=== PATIENT | male | born 1945 | race Caucasian/White ===

== ENCOUNTER 2022-08-01 19:23 | Emergency (ER) | payer MEDICARE ==
[2022-08-01 19:31] VITALS: TEMP 97.9
--- NOTE | 2022-08-01 19:59 | ED ---
Fall HPI - General Chief Complaint: Fall Stated Complaint: recheck Time Seen by Provider: 08/01/22 19:40 Source: patient, RN notes reviewed, old records reviewed Mode of arrival: ambulatory - History of Present Illness Initial Comments: This is a 77-year-old male to the ER for evaluation patient presents today for evaluation of back pain back pain is thoracic in nature as well as around his hips and lower back. This was a fall 3 days ago. Patient is recent heart transplant patient from fall was from standing on his porch while he was trying to avoid be. Patient did have x-ray today which showed some abnormality of thoracic spine and he was sent to ER for evaluation and imaging. 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 fevers no cough no congestion no chest pain or other complaint MD Complaint: fall (3 days ago) -: days(s) (3) Fall From: standing When Fall Occurred: # days [employer]ER (3) Fall Witnessed: no Place Fall Occurred: home Loss of Consciousness: none Prolonged Down Time?: no Location: back Severity: moderate Severity scale (1-10): 6 Context: tripped/slipped Associated Symptoms: denies - Related Data Home Medications Medication Instructions Recorded Confirmed Aspirin 81 mg PO DAILY 02/23/14 06/09/22 Levothyroxine Sodium [Synthroid] 25 mcg PO DAILY 02/23/14 06/09/22 Omeprazole [PriLOSEC] 20 mg PO DAILY 02/23/14 06/09/22 Albuterol Inhaler [Ventolin Hfa 2 puff INHALATION RT-Q6H PRN 06/09/22 06/09/22 Inhaler] Atorvastatin [Lipitor] 40 mg PO HS 06/09/22 06/09/22 Cholecalciferol [Vitamin D3 (25 25 mcg PO DAILY 06/09/22 06/09/22 Mcg = 1000 Iu)] Clopidogrel [Plavix] 75 mg PO DAILY 06/09/22 06/09/22 Furosemide [Lasix] 20 mg PO DAILY 06/09/22 06/09/22 Gabapentin 300 mg PO HS 06/09/22 06/09/22 amLODIPine [Norvasc] 10 mg PO DAILY 06/09/22 06/09/22 sitaGLIPtin [Januvia] 100 mg PO DAILY 06/09/22 06/09/22 Previous Rx's Medication Instructions Recorded Metoprolol Succinate (ER) [Toprol 50 mg PO DAILY #30 tab 06/11/22 XL] Allergies Allergy/AdvReac Type Severity Reaction Status Date / Time cephalexin monohydrate Allergy Rash/Hives Verified 08/01/22 19:31 [From Keflex] hydrocodone bitartrate Allergy Hallucinati Verified 08/01/22 19:31 [From Lortab] ons mushrooms Allergy Rash/Hives Uncoded 08/01/22 19:31 Review of Systems ROS Statement: Those systems with pertinent positive or pertinent negative responses have been documented in the HPI. ROS Other: All systems not noted in ROS Statement are negative. Past Medical History Past Medical History: GERD/Reflux, Hyperlipidemia, Hypertension, Thyroid Disorder History of Any Multi-Drug Resistant Organisms: None Reported Past Surgical History: Coronary Bypass/CABG, Joint Replacement, Orthopedic Surgery, Pacemaker Additional Past Surgical History / Comment(s): right foot surgery, left knee surgery, right shoulder surgery, keesha cataracts Past Psychological History: No Psychological Hx Reported Smoking Status: Former smoker Past Alcohol Use History: None Reported Past Drug Use History: None Reported General Exam Limitations: no limitations General appearance: alert, in no apparent distress Head exam: Present: atraumatic, normocephalic, normal inspection Eye exam: Present: normal appearance, PERRL, EOMI. Absent: scleral icterus, conjunctival injection, periorbital swelling ENT exam: Present: normal exam, mucous membranes moist Neck exam: Present: normal inspection. Absent: tenderness, meningismus, lymphadenopathy Respiratory exam: Present: normal lung sounds bilaterally. Absent: respiratory distress, wheezes, rales, rhonchi, stridor Cardiovascular Exam: Present: regular rate, normal rhythm, normal heart sounds. Absent: systolic murmur, diastolic murmur, rubs, gallop, clicks GI/Abdominal exam: Present: soft, normal bowel sounds. Absent: distended, tenderness, guarding, rebound, rigid Extremities exam: Present: normal inspection, full ROM, normal capillary refill. Absent: tenderness, pedal edema, joint swelling, calf tenderness Back exam: Present: normal inspection, tenderness (lumbar spine), paraspinal tenderness, other (no spinal tenderness of thoracic spine). Absent: muscle spasm, vertebral tenderness Neurological exam: Present: alert, oriented X3, CN II-XII intact Psychiatric exam: Present: normal affect, normal mood Skin exam: Present: warm, dry, intact, normal color. Absent: rash Course Vital Signs 08/01/22 08/01/22 19:25 23:22 Temperature 97.9 F Pulse Rate 75 68 Respiratory 20 18 Rate Blood Pressure 143/56 162/84 O2 Sat by Pulse 95 95 Oximetry - Reevaluation(s) Reevaluation #1: 08/01/22 22:15 medical record is reviewed Reevaluation #2: 08/01/22 22:15 Patient's pain is improved She continues to have improvement of pain here in the ER Reevaluation #3: 08/01/22 22:15 patient informed results and questions answered Patient understands nonspecific findings on thoracic spine CT and unlikely cor relation to 5 days on an outpatient x-ray being results of trauma. We will do CRP is a to suggest abscess as possible foreign computed tomography scan his CRP is negative he is afebrile, does not do IV drugs we will also obtain blood cultures. Patient informed of negative CRP and we will obtain culture of blood tests here in the emergency department scan will follow-up with primary care for recurrent evaluation of possible CT or MRI. Monitoring of symptoms and pain control. At this point it is unlikely patient does have thoracic spine abscess and findings on x-ray believe are unlikely due to trauma Patient's main complaint continues to be back pain back pain and lower in his lumbar spine and pelvis, patient does not have tenderness over her thoracic spine Reevaluation #4: 08/01/22 22:15 Was pt. sent in by a medical professional or institution? @ -yes outpatient Imaging Did you speak to anyone other than the patient for history? @ -no Did you review nursing and triage notes? @ -agree Were old charts reviewed? @ -no Differential Diagnosis? @ -no EKG interpreted by me (3pts min.)? @ -no X-rays interpreted by me (1pt min.)? @ -no CT interpreted by me (1pt min.)? @ -no U/S interpreted by me (1pt. min.)? @ -no What testing was considered but not performed? (CT, X-rays, U/S, labs)? Why? @ no What meds were considered but not given? Why? @ -no Did you discuss the management of the patient with other professionals? @ -no Did you reconcile home meds? @ -no Was smoking cessation discussed for >3mins.? @ -no Was critical care preformed (if so, how long)? @ -no Were there social determinants of health that impacted care today? How? (Homelessness, low income, unemployed, alcoholism, drug addiction, transportation, low edu. Level, literacy, decrease access to med. care, detention, rehab)? @ -no Was there de-escalation of care discussed even if they declined? (Discuss DNR or withdrawal of care, Hospice)? @ -no What co-morbidities impacted this encounter? (DM, HTN, Smoking, COPD, CAD, Cancer, CVA, Hep., AIDS, mental health diagnosis, sleep apnea, morbid obesity)? @ -no Was patient admitted / discharged? @ -dc Undiagnosed new problem with uncertain prognosis? @ -no Drug Therapy requiring intensive monitoring for toxicity (Heparin, Nitro, Insulin, Cardizem)? @ -no Were any procedures done? @ -no Diagnosis/symptom? @ -back pain Acute, or Chronic, or Acute on Chronic? @ -acute Uncomplicated (without systemic symptoms) or Complicated (systemic symptoms)? @ -uncomplicated Side effects of treatment? @ -no Exacerbation, Progression, or Severe Exacerbation] @ -no Poses a threat to life or bodily function? @ -no Reevaluation #5: 08/01/22 22:15 Differential Back Pain: Strain, zoster, cauda equina syndrome, epidural abscess, vertebral osteomyelitis, discitis, fracture, subluxation, disc herniation, DJD, spinal stenosis, dissection, AAA, pancreatitis, peptic ulcer disease, pyelonephritis, kidney stone, this is not meant to be an all-inclusive list. Medical Decision Making - Medical Decision Making 77 male DF for evaluation after a fall. Patient did fall 3-4 days prior to arrival to emergency throat today. Saw urgent care earlier today had an x-ray that was suspicious for findings in his thoracic spine patient has no tenderness over his thoracic spine, he is without real significant pain or distress no chest pain is lumbar and pelvic pain. Patient has no other complaints no headache chest pain shortness with abdominal pain. Patient is afebrile. Patient's recurrent heart surgery patient from CABG. Patient is going to heart therapy and rehab. Patient did have a CRP and computed tomography scan here in the emergency department for concern for possible abscess which we found on computed tomography scan which was negative CRP here in the ER blood cultures will be obtained and patient can be discharged home - Lab Data Result diagrams: 08/01/22 22:10 Lab Results 08/01/22 08/01/22 08/01/22 Range/Units 22:10 22:10 22:10 PT 10.6 (9.0-12.0) sec INR 1.0 (<1.2) APTT 24.5 (22.0-30.0) sec Sodium 139 (137-145) mmol/L Potassium 4.5 (3.5-5.1) mmol/L Chloride 103 (98-107) mmol/L Carbon Dioxide 28 (22-30) mmol/L Anion Gap 8 mmol/L BUN 17 (9-20) mg/dL Creatinine 0.84 (0.66-1.25) mg/dL Est GFR (CKD-EPI)AfAm >90 (>60 ml/min/1.73 sqM) Est GFR (CKD-EPI)NonAf 85 (>60 ml/min/1.73 sqM) Glucose 106 H (74-99) mg/dL Calcium 9.3 (8.4-10.2) mg/dL Total Bilirubin 0.5 (0.2-1.3) mg/dL AST 22 (17-59) U/L ALT 16 (4-49) U/L Alkaline Phosphatase 73 (38-126) U/L Troponin I <0.012 (0.000-0.034) ng/mL C-Reactive Protein 1.0 H (<1.0) mg/dL Total Protein 7.0 (6.3-8.2) g/dL Albumin 4.2 (3.5-5.0) g/dL - Radiology Data Radiology results: report reviewed (CT thoracic spine shows possible incidental finding could be possible thoracic spine abscess), image reviewed Disposition Clinical Impression: Fall, Thoracic back pain, Back pain, Lumbar spine pain Narrative: Abnormal Findings on outpatient XR Disposition: HOME SELF-CARE Instructions (If sedation given, give patient instructions): Back Pain (ED) Is patient prescribed a controlled substance at d/c from ED?: No Referrals: Johnnie Kirk DO [Primary Care Provider] - 1-2 days Time of Disposition: 23:00
[2022-08-01] MEDS ORDERED: KETOROLAC 15 MG/ML 1 ML VIAL IM STA (20:14)
[2022-08-01] MEDS ORDERED: Acetaminophen-Codeine 300-30mg TAB PO STA (20:14)
--- NOTE | 2022-08-01 21:17 | CT ---
EXAMINATION TYPE: CT thoracic spine wo con DATE OF EXAM: 08/01/2022 8:47 PM CLINICAL INDICATION:Male, 77 years old with history of fall; Fall x2days ago, severe back pain since. COMPARISON: Chest x-ray 06/11/2022 TECHNIQUE: Axial images of the thoracic and lumbar spine were obtained without contrast. Coronal and sagittal reformats were performed. CT DLP: 1574.2 mGycm, Automated exposure control for dose reduction was used. CT Contrast: Contrast used: None Oral contrast used: without Oral Contrast FINDINGS: Thoracic: The thoracic vertebral bodies have preserved heights and alignment. No acute osseous abdomen is. Mul tilevel mild intervertebral disc space narrowing present. Marginal osteophytes are noted. No evidence of extradural defects nor significant spinal canal narrowing at any thoracic vertebral mary dy level. Other: Multiple enlarged mediastinal, paratracheal, subcarinal and perihilar lymph nodes are incident ally noted. Examples of which include a pretracheal lymph node node measuring 1.3 cm in short axis (s eries 202, image 37 and precarinal lymph node measures 1.4 cm (series 202, image 43). Large subcarina l lymph node measures at least 2.4 cm in short axis, however limited evaluation as portions of the ly mph node are abutting the esophagus. Soft tissues are unremarkable. Scattered calcified atherosclerotic changes of the thoracic and abdomi nal aorta. Visualized portions of the abdomen are within normal limits. IMPRESSION: 1. No evidence for thoracic spine fracture or significant stenosis. 2. Mediastinal adenopathy which is nonspecific. This may relate to acute infectious or inflammatory p rocess. Recommend short-term CT chest follow-up and correlation with clinical lab values.
[2022-08-01] MEDS ORDERED: SODIUM CHLORIDE 0.9% 500 ML 500 ML IV STA (21:23)
[2022-08-01] MEDS ORDERED: MORPHINE SULFATE 4 MG/ML SYRINGE IV STA (21:23)
[2022-08-01 22:47] LABS: ALT 16 U/L (4-49); AST 22 U/L (17-59); African American GFR (CKD) >90 (>60 ml/min/1.73 sqM); Albumin 4.2 g/dL (3.5-5.0); Alkaline Phosphatase 73 U/L (38-126); Anion Gap 8 mmol/L; Blood Urea Nitrogen 17 mg/dL (9-20); Calcium 9.3 mg/dL (8.4-10.2); Carbon Dioxide 28 mmol/L (22-30); Chloride 103 mmol/L (98-107); Glucose 106 mg/dL (74-99); Non-African American GFR(CKD) 85 (>60 ml/min/1.73 sqM); Potassium 4.5 mmol/L (3.5-5.1); Sodium 139 mmol/L (137-145); Total Bilirubin 0.5 mg/dL (0.2-1.3)
[2022-08-01 23:23] VITALS: BP 162/84; PULSE 68; RESP 18
[2022-08-01 23:30] LABS: Partial Thromboplastin Time 24.5 sec (22.0-30.0); Prothrombin Time 10.6 sec (9.0-12.0)
== END 2022-08-01 23:23 | disposition home or self-care (01) ==
LOC: EC 19:23
DX: M54.6 Pain in thoracic spine (principal); M54.50 Low back pain, unspecified; I10 Essential (primary) hypertension; E78.5 Hyperlipidemia, unspecified; K21.9 Gastro-esophageal reflux disease without esophagitis; E07.9 Disorder of thyroid, unspecified; Z79.82 Long term (current) use of aspirin; Z79.890 Hormone replacement therapy; Z79.899 Other long term (current) drug therapy; Z87.891 Personal history of nicotine dependence; Z88.1 Allergy status to other antibiotic agents; Z88.5 Allergy status to narcotic agent; Z91.018 Allergy to other foods; Z95.1 Presence of aortocoronary bypass graft; W01.0XXA Fall on same level from slipping, tripping and stumbling without subsequent striking against object, initial encounter; Y92.009 Unspecified place in unspecified non-institutional (private) residence as the place of occurrence of the external cause
CPT/HCPCS: 36415; 80053; 84484; 85610; 85730; 86140; 87040; 72128; 99284; 96374; 96361; 96372; J2270; J1885

== ENCOUNTER 2022-09-16 12:30 | Day surgery (SDC) | payer MEDICARE ==
[2022-09-15 12:00] VITALS: BMI 34.0
[~2022-09-16 12:30] MED LIST: LACTATED RINGERS 1,000 ML IV SCH; LIDOCAINE 1% (10MG/ML) FOR IV START INTRADERMA PRN
[2022-09-16 13:31] LABS: Glucose,Whole Blood 112 mg/dL (70-110)
[2022-09-16] MEDS ORDERED: fentaNYL (PF) 50 MCG/ML 2 ML AMP ONE (14:23)
[2022-09-16] MEDS ORDERED: ROCURONIUM 10 MG/ML (5 ML VIAL) IV ONE (14:23)
[2022-09-16] MEDS ORDERED: LIDOCAINE 2% INJ 20 MG/ML (2 ML VIAL) ONE (14:23)
[2022-09-16] MEDS ORDERED: PROPOFOL 10 MG/ML 20 ML VIAL IV ONE (14:23)
[2022-09-16] MEDS ORDERED: NEOSTIGMINE 1 MG/ML 10 ML VIAL ONE (14:23)
[2022-09-16] MEDS ORDERED: SUCCINYLCHOLINE CHLORIDE 200 MG/10 ML VIAL IV ONE (14:23)
[2022-09-16] MEDS ORDERED: ePHEDrine 50 MG/ML 1 ML VIAL ONE (14:23)
[2022-09-16] MEDS ORDERED: MIDAZOLAM 2 MG/2 ML VIAL ONE (14:23)
[2022-09-16] MEDS ORDERED: GLYCOPYRROLATE 0.2 MG/ML 2 ML VIAL ONE (14:23)
[2022-09-16 15:40] VITALS: RESP 16; TEMP 97.2
--- NOTE | 2022-09-16 15:52 | XR ---
EXAMINATION TYPE: XR chest 1V portable DATE OF EXAM: 09/16/2022 COMPARISON: 06/11/2022 HISTORY: Postbronchoscopy TECHNIQUE: Single frontal view of the chest is obtained. FINDINGS: Postsurgical change right shoulder overlying the mediastinum. The heart is enlarged. There is a diffuse hyperinflation. No pleural effusion or pneumothorax. Left sided cardiac device noted. N o focal consolidation. IMPRESSION: 1. COPD with no evidence of pneumothorax.
--- NOTE | 2022-09-16 16:08 | P.PCN ---
Date of Procedure: 09/16/22 Description of Procedure: Preoperative Diagnosis: mediastinal lymphadenopathy Postoperative Diagnosis: mediastinal lymphadenopathy Procedure(s) Performed: 1 flexible bronchoscopy, airway inspection 2 endoscopic ultrasound (EBUS) 3 transbronchial needle aspirate of station 7 lymph node Surgeon: Yue Alexander Estimated Blood Loss (ml): 0 Pathology: other Condition: stable Disposition: same day Operative Findings: After obtaining the consent the patient was taken to the OR suite he was intubated and put on MV by anesthesia then the scope was advanced to the ET tube until the Trachea was seen and it was normal and then the mitchell appears normal then the scope advanced to the left main and BEVERLY LB1-LB3 were seen and no endobronchial lesions were seen then the scope advanced to the lingula and the LB4 and LB5 were seen and no endobronchial lesions were seen the scope retracted and advanced to the left lower lobes LB6 to LB12 were seen one by one and no endobronchial lesions, then the scope was retracted back to the mitchell and advanced to the Right main and RUL RB1 and RB2 and RB3 were seen one by one and no endobronchial lesions were seen the scope then retracted and advanced to the BI and RML RB4 and RB5 were seen and no endobronchial lesions were seen then it was retracted and advanced to the RLL RB6 to RB12 were seen one by one and no endobronchial lesions. Then EBUS was used and the lymph nodes were examined. Direct measurement of the mediastinal lymph nodes revealed a 15x12 mm station 4R lymph node, 15x13 mm station 10 R lymph node, 22x18 mm station 7 lymph node and 15x18 mm pretracheal lymph nodes. I performed transbronchial needle aspirate of station 7 and a total of 5 passes FNA without major bleeding and the scope was removed and taken out in total the patient was send to the floor in stable condition
[2022-09-16 16:20] VITALS: BP 142/60; PULSE 61
== END 2022-09-16 16:40 | disposition home or self-care (01) ==
LOC: ORWHC2ENDO 12:30
PROVIDERS: ATTEND Internal Medicine Critical Care Medicine
DX: R91.8 Other nonspecific abnormal finding of lung field (principal); I25.10 Atherosclerotic heart disease of native coronary artery without angina pectoris; Z95.0 Presence of cardiac pacemaker; I10 Essential (primary) hypertension; E78.5 Hyperlipidemia, unspecified; Z87.891 Personal history of nicotine dependence; E03.9 Hypothyroidism, unspecified; E11.9 Type 2 diabetes mellitus without complications; K21.9 Gastro-esophageal reflux disease without esophagitis; Z79.82 Long term (current) use of aspirin; Z79.899 Other long term (current) drug therapy; Z88.1 Allergy status to other antibiotic agents; Z88.5 Allergy status to narcotic agent; Z79.84 Long term (current) use of oral hypoglycemic drugs; Z79.02 Long term (current) use of antithrombotics/antiplatelets; Z79.890 Hormone replacement therapy
CPT/HCPCS: 88305; 88173; 88184; 88185; 88342; 88341; 71045; 31652; 31629; J2250; J0330; J2710; J3010; J2704; J2001; 31625

== ENCOUNTER 2022-10-14 11:56 | Day surgery (SDC) | payer MEDICARE ==
[2022-10-14 12:34] VITALS: BP 152/65; PULSE 75; RESP 16; TEMP 97.6
--- NOTE | 2022-10-14 14:49 | US ---
Patient was brought to the ultrasound suite. Imaging was reviewed at [facility]. Lymph n odes were deep in the neck near the major vessels of the aorta and head and neck. Procedure was abort ed at that time.
== END 2022-10-14 14:00 | disposition home or self-care (01) ==
LOC: RADPROMAIN 11:56
PROVIDERS: ATTEND Internal Medicine
DX: R59.0 Localized enlarged lymph nodes (principal); Z53.9 Procedure and treatment not carried out, unspecified reason
CPT/HCPCS: 76536

== ENCOUNTER → 2023-02-08 | Outpatient (CLI) | payer MEDICARE ==
--- NOTE | 2023-02-08 15:20 | US ---
EXAMINATION TYPE: US thyroid st tissue head/neck DATE OF EXAM: 02/08/2023 COMPARISON: Pet/CT 12/26/2022 CLINICAL INDICATION: Male, 77 years old with history of R59.1 GENERALIZED ENLARGED LYMPH NODES; Recen tly diagnosis of lymphoma. Per patient, left enlarged lymph nodes. TECHNIQUE: Multiple sonographic images taken of left neck. FINDINGS: Multiple images taken with prominent lymph nodes identified. Largest appear next to IJV a nd adjacent to each other. 1: Short axis measurement = 1.2 cm and cortical thickness= 5.7 mm 2: Short axis measurement = 1.1 cm and cortical thickness= 6.4 mm IMPRESSION: Bilateral lymph nodes some of which have thickened cortex. Given patient's history of lym phoma/recurrence in FDG activity within these regions these are compatible with neoplastic process.
== END | disposition home or self-care (01) ==
LOC: RADUSWWP 14:02
PROVIDERS: ATTEND Surgery
DX: R59.1 Generalized enlarged lymph nodes (principal)
CPT/HCPCS: 76536

== ENCOUNTER → 2023-05-20 | Outpatient (CLI) | payer MEDICARE ==
--- NOTE | 2023-05-20 14:43 | PE ---
EXAMINATION TYPE: PET CT fusion skull to thigh DATE OF EXAM: 05/20/2023 COMPARISON: No recent pertinent CT comparison. Prior PET/CT: 12/26/2022 HISTORY: Lymphoma TECHNIQUE: Following the intravenous administration of 10.31 mCi of F-18 FDG, whole body images are performed from the skull base to the midthigh. Images are reviewed on the computer in the coronal, a xial, and sagittal planes. Reconstructed rotating images are created on independent workstation and reviewed on the computer. A localization and attenuation correction CT is performed in conjunction with the PET scan. DLP: 502.74 mGycm SCAN: Subsequent Blood glucose: 110 mg/dL Average Mediastinum SUV: 2.54 Average Liver SUV: 3.35 FINDINGS: NECK: There are scattered small foci of increased radiotracer accumulation scattered within the bila teral neck. The most intense is in the right lateral neck, image 56, SUV 5.12 additional notable area s within the more lateral right neck, image 61, SUV 4.02 THORAX: Supraclavicular adenopathy is present. Most intense is in the left medial image 72, SUV 9.06. Previous measurement 4.07 Superior mediastinal adenopathy is at this level, image 72, SUV 4.52. An intense pretracheal lymph node is on image 86, SUV 6.31. Previous measurement 6.89 Additional pretrac heal peribronchial adenopathy is present. Intense uptake at the subcarinal region measures 7.97. Prev ious measurement 8.84. Bilateral axillary adenopathy is present measuring 5.58 on the left and 6.47 o n the right, image 101. Right infrahilar adenopathy has uptake image 111, SUV 5.57. Previous measurem ent 6.31 ABDOMEN: There may be a focus of radiotracer within the mesentery right midabdomen, image 184, SUV 2. 87. This could be potentially related to bowel. Liver is heterogenous which causes some limitation. N o suspicious uptake within adenopathy is identified. PELVIS: There is abnormal uptake within the inguinal adenopathy. On the left image 242 has an SUV of 5.4. On the right, image 245 has SUV of 4.52 OSSEOUS STRUCTURES: No abnormal uptake LOCALIZATION CT: Localization CT appears to underrepresent the hypermetabolic lymphadenopathy small l ymph nodes are are evident throughout but more notably through the mediastinum. COMPARISON: Uptake through the small nodules within the bilateral neck are new. Multiple new small fo ci are within the mediastinum. The previous large areas of uptake have variable increased or decrease d radiotracer. Inguinal adenopathy is new. IMPRESSION: 1. Overall worsening from prior examination with multiple new foci of radiotracer including within th e neck and inguinal regions. New smaller foci are developing within the mediastinum. 2. Previous areas of abnormal uptake may has some increased uptake in general. There are some represe ntative areas measured which is slightly decrease. These are fewer than the increased areas.
== END | disposition home or self-care (01) ==
LOC: RADPETMAIN 11:27
PROVIDERS: ATTEND Internal Medicine
DX: C82.92 Follicular lymphoma, unspecified, intrathoracic lymph nodes (principal)
CPT/HCPCS: 78815; A9552

== ENCOUNTER 2023-06-09 12:53 | Emergency (ER) | payer MEDICARE ==
[2023-06-09 13:09] VITALS: RESP 18
--- NOTE | 2023-06-09 13:38 | ED ---
General Adult HPI - General Chief complaint: Wound/Laceration Stated complaint: Bleeding from right toe/foot Time Seen by Provider: 06/09/23 13:26 Source: patient, RN notes reviewed, old records reviewed Mode of arrival: wheelchair Limitations: no limitations - History of Present Illness Initial comments: 77-year-old male trip and fall in his driveway over uneven concrete with right great toe injury. Patient had noticed bleeding and presented immediately for evaluation. He denies significant pain and has history of neuropathy. No other injury, no head or neck trauma. No anticoagulation. - Related Data Home Medications Medication Instructions Recorded Confirmed Aspirin 81 mg PO DAILY 02/23/14 10/14/22 Levothyroxine Sodium [Synthroid] 25 mcg PO DAILY 02/23/14 10/14/22 Omeprazole [PriLOSEC] 20 mg PO DAILY 02/23/14 10/14/22 Atorvastatin [Lipitor] 40 mg PO HS 06/09/22 10/14/22 Cholecalciferol [Vitamin D3 (25 25 mcg PO DAILY 06/09/22 10/14/22 Mcg = 1000 Iu)] Clopidogrel [Plavix] 75 mg PO DAILY 06/09/22 10/14/22 Furosemide [Lasix] 20 mg PO DAILY 06/09/22 10/14/22 Gabapentin 300 mg PO HS 06/09/22 10/14/22 metFORMIN HCL 1 tab PO BID 09/15/22 10/14/22 Previous Rx's Medication Instructions Recorded Metoprolol Succinate (ER) [Toprol 50 mg PO DAILY #30 tab 06/11/22 XL] Sulfamethox-Tmp 800-160Mg [Bactrim 1 tab PO Q12HR 7 Days #14 tab 06/09/23 DS 800-160 mg] Allergies Allergy/AdvReac Type Severity Reaction Status Date / Time cephalexin monohydrate Allergy Rash/Hives Verified 06/09/23 13:07 [From Keflex] hydrocodone bitartrate Allergy Hallucinati Verified 06/09/23 13:07 [From Lortab] ons mushrooms Allergy Rash/Hives Uncoded 06/09/23 13:07 Review of Systems ROS Statement: Those systems with pertinent positive or pertinent negative responses have been documented in the HPI. ROS Other: All systems not noted in ROS Statement are negative. Past Medical History Past Medical History: Coronary Artery Disease (CAD), Diabetes Mellitus, GERD/Reflux, Hyperlipidemia, Hypertension, Thyroid Disorder History of Any Multi-Drug Resistant Organisms: None Reported Past Surgical History: Coronary Bypass/CABG, Hernia Repair, Joint Replacement, Orthopedic Surgery, Pacemaker Additional Past Surgical History / Comment(s): right foot surgery, left knee surgery, right shoulder surgery, keesha cataracts Past Anesthesia/Blood Transfusion Reactions: No Reported Reaction Type of Cardiac Device: Unknown Device Placement Date:: unk Past Psychological History: No Psychological Hx Reported Smoking Status: Former smoker Past Alcohol Use History: None Reported Past Drug Use History: None Reported - Past Family History Father Family Medical History: No Reported History General Exam Limitations: no limitations General appearance: alert, in no apparent distress Head exam: Present: atraumatic, normocephalic Eye exam: Present: normal appearance, PERRL ENT exam: Present: normal exam Neck exam: Present: normal inspection. Absent: tenderness, meningismus Respiratory exam: Present: normal lung sounds bilaterally. Absent: respiratory distress, wheezes Cardiovascular Exam: Present: regular rate, normal rhythm GI/Abdominal exam: Present: soft. Absent: distended, tenderness Extremities exam: Present: other (Right foot, great toe nail avulsion with laceration approximately 1 cm on the medial aspect base of the toenail) Neurological exam: Present: alert, oriented X3 Psychiatric exam: Present: normal affect, normal mood Course Vital Signs 06/09/23 13:02 Temperature 98.3 F Pulse Rate 73 Respiratory 18 Rate Blood Pressure 182/72 O2 Sat by Pulse 994 H Oximetry Procedures - Laceration Laceration #1 Consent Obtained: verbal consent Indication: laceration Site: foot Size (cm): 2 Description: linear, flap, avulsion Depth: [id number] Anesthetic Used: lidocaine 1% Anesthesia Technique: nerve block Amount (mls): 3 Pre-repair: wound explored, irrigated extensively Type of Sutures: nylon Size of Sutures: 4-0 Number of Sutures: 4 Technique: simple, interrupted Complications: pain Patient Tolerated Procedure: well Additional Comments: Nail avulsion, the nail is sutured to the adjacent skin and laceration repaired - Nerve Block Consent Obtained: verbal consent Local Anesthetic Used: Lidocaine 1% Amount of anesthesia used: 3 Side: right Nerve Blocks: digital Procedure Successful: Yes Complications: none Patient Tolerated Procedure: well Medical Decision Making - Medical Decision Making Was pt. sent in by a medical professional or institution (Dr., PA, CHAIN TENDER, urgent care, hospital, or care home...) When possible be specific @ -No Did you speak to anyone other than the patient for history (EMS, parent, family, police, friend...)? What history was obtained from this source @ -No Did you review nursing and triage notes (agree or disagree)? Why? @ -I reviewed and agree with nursing and triage notes Were old charts reviewed (outside hosp., previous admission, EMS record, old EKG, old radiological studies, urgent care reports/EKG's, care home records)? Report findings @ -No old charts were reviewed Differential Diagnosis (chest pain, altered mental status, abdominal pain women, abdominal pain men, vaginal bleeding, weakness, fever, dyspnea, syncope, headache, dizziness, GI bleed, back pain, seizure, CVA, palpatations, mental health, musculoskeletal)? @ -[Laceration, nail avulsion, fracture,, open fracture EKG interpreted by me (3pts min.). @ -As above X-rays interpreted by me (1pt min.). @ -Nondisplaced fracture of the distal phalanx CT interpreted by me (1pt min.). @ -None done U/S interpreted by me (1pt. min.). @ -None done What testing was considered but not performed or refused? (CT, X-rays, U/S, labs)? Why? @ -None What meds were considered but not given or refused? Why? @ -None Did you discuss the management of the patient with other professionals (professionals i.e. FRITZ Brooks, CHAIN TENDER, lab, RT, psych nurse, hospice social worker, shoeshiner, teacher, intelligence officer, director case management)? Give summary @ -No Was smoking cessation discussed for >3mins.? @ -No Was critical care preformed (if so, how long)? @ -No Were there social determinants of health that impacted care today? How? (Homelessness, low income, unemployed, alcoholism, drug addiction, transportation, low edu. Level, literacy, decrease access to med. care, nursing home, rehab)? @ -No Was there de-escalation of care discussed even if they declined (Discuss DNR or withdrawal of care, Hospice)? DNR status @ -No What co-morbidities impacted this encounter? (DM, HTN, Smoking, COPD, CAD, Cancer, CVA, ARF, Chemo, Hep., AIDS, mental health diagnosis, sleep apnea, morbid obesity)? @ -None Was patient admitted / discharged? Hospital course, mention meds given and route, prescriptions, significant lab abnormalities, going to OR and other pertinent info. @ -[77-year-old male with right great toe injury, nail avulsion, laceration and fracture. The wound was cleansed with chlorhexidine and irrigated, repaired with nylon suture total 4 sutures. Patient placed on antibiotics, there is a questionable nondisplaced fracture of the distal phalanx. Patient covered with antibiotics. Given a postoperative shoe. Undiagnosed new problem with uncertain prognosis? @ -No Drug Therapy requiring intensive monitoring for toxicity (Heparin, Nitro, Insulin, Cardizem)? @ -No Were any procedures done? @ -[Yes, laceration repair, digital block Diagnosis/symptom? @Nail avulsion, laceration, Acute, or Chronic, or Acute on Chronic? @ -Acute Uncomplicated (without systemic symptoms) or Complicated (systemic symptoms)? @ -Default Side effects of treatment? @ -No Exacerbation, Progression, or Severe Exacerbation? @ -No Poses a threat to life or bodily function? How? (Chest pain, [place], [place], pneumonia, PE, COPD, DKA, ARF, appy, cholecystitis, CVA, Diverticulitis, Homicidal, Suicidal, threat to staff... and all critical care pts) @ -No Disposition Clinical Impression: Laceration, Toenail avulsion Disposition: HOME SELF-CARE Condition: Good Instructions (If sedation given, give patient instructions): Care For Your Stitches (ED), Laceration (ED), Nail Avulsion (ED) Additional Instructions: Please return for suture removal in 14 days. Please follow-up with your primary care provider. Prescriptions: Sulfamethox-Tmp 800-160Mg [Bactrim DS 800-160 mg] 1 tab PO Q12HR 7 Days #14 tab Is patient prescribed a controlled substance at d/c from ED?: No Referrals: None,Stated [REFERRING] - 1-2 days Time of Disposition: 14:13
--- NOTE | 2023-06-09 13:53 | XR ---
EXAMINATION TYPE: XR foot complete RT DATE OF EXAM: 06/09/2023 COMPARISON: NONE HISTORY: Pain TECHNIQUE: Three views are submitted. FINDINGS: Diffuse osteopenia. Hallux valgus deformity and moderate arthropathy first MTP. Mild arthropathy all PIP and DIP joints. Soft tissue edema with bandaging limiting portions of the distal margins of the phalanges. Findings a re suspicious for hairline nondisplaced fracture tuft distal phalanx first digit. Correlate with poin t tenderness. Extensive postsurgical change involving the ankle partially included [id number]. Intertarsal arthr opathy noted. Exostosis base of third metatarsal with chronic erosion proximal diaphysis fourth metat arsal. IMPRESSION: 1. Findings suspicious for hairline nondisplaced fracture tuft distal phalanx first digit. Correlate with point tenderness.
[2023-06-09] MEDS: LIDOCAINE 1% INJ 10MG/ML (20 ML MDV) SQ ONE (14:29)
[2023-06-09 15:42] VITALS: BP 152/69; PULSE 69; TEMP 98
== END 2023-06-09 15:00 | disposition home or self-care (01) ==
LOC: EC 12:53
DX: S91.201A Unspecified open wound of right great toe with damage to nail, initial encounter (principal); I10 Essential (primary) hypertension; I25.10 Atherosclerotic heart disease of native coronary artery without angina pectoris; E11.36 Type 2 diabetes mellitus with diabetic cataract; E78.5 Hyperlipidemia, unspecified; K21.9 Gastro-esophageal reflux disease without esophagitis; E07.9 Disorder of thyroid, unspecified; Z79.02 Long term (current) use of antithrombotics/antiplatelets; Z79.84 Long term (current) use of oral hypoglycemic drugs; Z79.890 Hormone replacement therapy; Z79.899 Other long term (current) drug therapy; Z87.891 Personal history of nicotine dependence; Z88.1 Allergy status to other antibiotic agents; Z88.5 Allergy status to narcotic agent; Z91.018 Allergy to other foods; Z95.0 Presence of cardiac pacemaker; Z95.1 Presence of aortocoronary bypass graft; W01.0XXA Fall on same level from slipping, tripping and stumbling without subsequent striking against object, initial encounter
CPT/HCPCS: 73630; 12001; 11730; 99283; J2001

== ENCOUNTER 2023-06-18 19:29 | Emergency (ER) | payer MEDICARE ==
--- NOTE | 2023-06-18 19:46 | ED ---
Allergic Reaction HPI - General Source: patient, RN notes reviewed <Aisha Cummings - Last Filed: 06/18/23 19:46> - General Source: patient, family, RN notes reviewed, old records reviewed <Jaspreet Lomeli - Last Filed: 06/19/23 04:35> - General Stated complaint: allergic reaction, rash Time Seen by Provider: 06/18/23 19:44 - History of Present Illness Initial Comments: Patient is a 77 year old male presenting to the ER with a chief complint of a rash. Patient is currently undergoing chemo in the made frequent changes of chemo medication. Patient also recently prescribed Bactrim for toe infection. States he has been having full body rash recently. (Aisha Cummings) Patient is a 77-year-old male who presents emergency department with multiple complaints. Primary complaint is generalized macular rash located over his body. He has been on Bactrim a toe injury as well is chronically since starting chemo last month. Noticed he has been having a rash that is pruritic over the last few days. No known allergy to Bactrim. Also is complaining of continued oozing of blood from a right toenail injury. Stitches have been in for approximately 10 days. Unchanged otherwise. Presents for further evaluation at this time. Denies fevers or other complaints. Originally seen as a quick note. I evaluated him when he was placed in a room. (Jaspreet Lomeli) - Related Data Home Medications Medication Instructions Recorded Confirmed Aspirin 81 mg PO DAILY 02/23/14 10/14/22 Levothyroxine Sodium [Synthroid] 25 mcg PO DAILY 02/23/14 10/14/22 Omeprazole [PriLOSEC] 20 mg PO DAILY 02/23/14 10/14/22 Atorvastatin [Lipitor] 40 mg PO HS 06/09/22 10/14/22 Cholecalciferol [Vitamin D3 (25 25 mcg PO DAILY 06/09/22 10/14/22 Mcg = 1000 Iu)] Clopidogrel [Plavix] 75 mg PO DAILY 06/09/22 10/14/22 Furosemide [Lasix] 20 mg PO DAILY 06/09/22 10/14/22 Gabapentin 300 mg PO HS 06/09/22 10/14/22 metFORMIN HCL 1 tab PO BID 09/15/22 10/14/22 Previous Rx's Medication Instructions Recorded Metoprolol Succinate (ER) [Toprol 50 mg PO DAILY #30 tab 06/11/22 XL] Sulfamethox-Tmp 800-160Mg [Bactrim 1 tab PO Q12HR 7 Days #14 tab 06/09/23 DS 800-160 mg] Famotidine [Pepcid] 20 mg PO DAILY 14 Days #14 tablet 06/19/23 clindamycin HCL 300 mg PO TID 7 Days #21 capsule 06/19/23 Allergies Allergy/AdvReac Type Severity Reaction Status Date / Time cephalexin monohydrate Allergy Rash/Hives Verified 06/18/23 19:47 [From Keflex] hydrocodone bitartrate Allergy Hallucinati Verified 06/18/23 19:47 [From Lortab] ons mushrooms Allergy Rash/Hives Uncoded 06/18/23 19:47 Review of Systems ROS Other: All systems not noted in ROS Statement are negative. <Aisha Cummings - Last Filed: 06/18/23 19:46> ROS Other: All systems not noted in ROS Statement are negative. <Jaspreet Lomeli - Last Filed: 06/19/23 04:35> ROS Statement: Those systems with pertinent positive or pertinent negative responses have been documented in the HPI. Review of Systems: CONST: Denies fever EYES: Denies blurry vision ENT: Denies nasal congestion C/V: Denies Chest pain RESP: Denies shortness of breath GI: Denies abdominal pain : Denies dysuria SKIN: Endorses toe bleeding from first toe on the right side injury and endorses rash. MSK: Denies joint pain. NEURO: Denies headache (Jaspreet Lomeli) Past Medical History Past Medical History: Coronary Artery Disease (CAD), Diabetes Mellitus, GERD/Reflux, Hyperlipidemia, Hypertension, Thyroid Disorder History of Any Multi-Drug Resistant Organisms: None Reported Past Surgical History: Coronary Bypass/CABG, Hernia Repair, Joint Replacement, Orthopedic Surgery, Pacemaker Additional Past Surgical History / Comment(s): right foot surgery, left knee surgery, right shoulder surgery, keesha cataracts Past Anesthesia/Blood Transfusion Reactions: No Reported Reaction Type of Cardiac Device: Unknown Device Placement Date:: unk Past Psychological History: No Psychological Hx Reported Smoking Status: Former smoker Past Alcohol Use History: None Reported Past Drug Use History: None Reported - Past Family History Father Family Medical History: No Reported History <Aisha Cummings - Last Filed: 06/18/23 19:46> General Exam <Aisha Cummings - Last Filed: 06/18/23 19:46> <Jaspreet Lomeli - Last Filed: 06/19/23 04:35> - General Exam Comments Initial Comments: Visual Physical Exam Vital signs reviewed General: Well-appearing, nontoxic, no acute distress. Head: Normocephalic, atraumatic Eyes: PERRLA, EOMI ENT: Airway patent Chest: Nonlabored breathing Skin: No visual rash, normal skin tone Neuro: Alert and oriented 3 Musculoskeletal: No gross abnormalities (Aisha Cummings) General: Appears in no acute distress. HEAD: Normal with no signs of head trauma. EYES: PERRLA, EOMI, conjunctiva normal, no discharge. ENT: Hearing grossly intact, normal oropharynx. RESPIRATORY: Clear breath sounds bilaterally. No wheezes, rales, or rhonchi. C/V: Regular rate and rhythm. S1 and S2 auscultated, no edema, peripheral pulses 2+ and intact throughout ABD: Abd is soft, nontender, nondistended EXT: Normal range of motion, no obvious deformity SKIN: Macular rash located diffusely over her body. Appears allergic in nature. Appears to be pruritic. Not blanchable. Patient also has oozing of blood from a right toenail/nailbed injury on the first digit of the toe. Some chronic bruising at the site as well. No new findings. NEURO: Alert and oriented x 4. (Jaspreet Lomeli) Course Vital Signs 06/18/23 06/19/23 19:44 00:48 Temperature 98 F Pulse Rate 87 74 Respiratory 18 16 Rate Blood Pressure 165/74 148/68 O2 Sat by Pulse 95 94 L Oximetry Medical Decision Making <Aisha Cummings - Last Filed: 06/18/23 19:46> - Lab Data Result diagrams: 06/18/23 22:56 06/18/23 22:56 <Jaspreet Lomeli - Last Filed: 06/19/23 04:35> - Medical Decision Making I performed the quick note portion of the exam. Electronically signed by Aisha Cummings PA-C (Aisha Cummings) Was pt. sent in by a medical professional or institution (FRITZ Brooks, BUSINESS SPECIALIST, urgent care, hospital, or long term...) When possible be specific @ -No Did you speak to anyone other than the patient for history (EMS, parent, family, police, friend...)? What history was obtained from this source @ -Patient's helps with the history. Did you review nursing and triage notes (agree or disagree)? Why? @ -I reviewed and agree with nursing and triage notes Were old charts reviewed (outside hosp., previous admission, EMS record, old EKG, old radiological studies, urgent care reports/EKG's, long term records)? Report findings @ -No old charts were reviewed Differential Diagnosis (chest pain, altered mental status, abdominal pain women, abdominal pain men, vaginal bleeding, weakness, fever, dyspnea, syncope, headache, dizziness, GI bleed, back pain, seizure, CVA, palpatations, mental health, musculoskeletal)? @ -Allergic reaction to Bactrim, allergy, anaphylaxis, this list is not all inclusive. EKG interpreted by me (3pts min.). @ -None done X-rays interpreted by me (1pt min.). @ -None done CT interpreted by me (1pt min.). @ -None done U/S interpreted by me (1pt. min.). @ -None done What testing was considered but not performed or refused? (CT, X-rays, U/S, labs)? Why? @ -None What meds were considered but not given or refused? Why? @ -None Did you discuss the management of the patient with other professionals (professionals i.e. FRITZ Brooks, BUSINESS SPECIALIST, lab, RT, psych nurse, medical social worker, black pickler, teacher, information assurance officer, case packer and sealer)? Give summary @ -No Was smoking cessation discussed for >3mins.? @ -No Was critical care preformed (if so, how long)? @ -No Were there social determinants of health that impacted care today? How? (Homelessness, low income, unemployed, alcoholism, drug addiction, transportation, low edu. Level, literacy, decrease access to med. care, fpc, rehab)? @ -No Was there de-escalation of care discussed even if they declined (Discuss DNR or withdrawal of care, Hospice)? DNR status @ -No What co-morbidities impacted this encounter? (DM, HTN, Smoking, COPD, CAD, Cancer, CVA, ARF, Chemo, Hep., AIDS, mental health diagnosis, sleep apnea, morbid obesity)? @ -None Was patient admitted / discharged? Hospital course, mention meds given and route, prescriptions, significant lab abnormalities, going to OR and other pertinent info. @ -Presents for what appears to be an allergic reaction to Bactrim. No other new medications at this time. Has not stopped taking Bactrim. I recommended he do so. He is already on a steroid Dosepak as well as Benadryl at home. I will add on Pepcid at this time as well. Basic labs were obtained as he is having a slow ooze from his right toe injury for which she was on Bactrim. They are remarkable for a very mild leukocytosis of 10.7. Hemoglobin within acceptable limits. Otherwise within acceptable limits. I discussed the results with the patient. We will switch antibiotics to clindamycin at this time. I recommended he stop using Bactrim as I do suspect this is likely what contributed to his current rash. No evidence of anaphylaxis. He will be discharged home with a prescription for Pepcid and I recommended he continue using his Benadryl and Medrol Dosepak. He was in agreement this plan. Strict return precautions discussed. I will provide the patient with a prescription for clindamycin, famotidine. I instructed the patient to follow up with their PCP in the next 1-3 days. I provided contact information for follow up with podiatry. I explained that the patient should return to the emergency department if they experience any worsening symptoms. Strict return precautions were discussed with the patient. The patient expressed understanding of these instructions. I answered all questions that the patient had. The patient was discharged home in good condition with their prescriptions and follow up information. Undiagnosed new problem with uncertain prognosis? @ -No Drug Therapy requiring intensive monitoring for toxicity (Heparin, Nitro, Insulin, Cardizem)? @ -No Were any procedures done? @ -No Diagnosis/symptom? @ -Allergy to Bactrim Acute, or Chronic, or Acute on Chronic? @ -Acute Uncomplicated (without systemic symptoms) or Complicated (systemic symptoms)? @ -Complicated Side effects of treatment? @ -No Exacerbation, Progression, or Severe Exacerbation? @ -No Poses a threat to life or bodily function? How? (Chest pain, [place], [place], pneumonia, PE, COPD, DKA, ARF, appy, cholecystitis, CVA, Diverticulitis, Homicidal, Suicidal, threat to staff... and all critical care pts) @ -Unlikely (Jaspreet Lomeli) - Lab Data Lab Results 06/18/23 06/18/23 Range/Units 22:56 22:56 WBC 10.7 H (3.8-10.6) k/uL RBC 4.47 (4.30-5.90) m/uL Hgb 13.7 (13.0-17.5) gm/dL Hct 40.3 (39.0-53.0) % MCV 90.1 (80.0-100.0) fL MCH 30.5 (25.0-35.0) pg MCHC 33.9 (31.0-37.0) g/dL RDW 13.0 (11.5-15.5) % Plt Count 193 (150-450) k/uL MPV 7.2 Sodium 135 L (137-145) mmol/L Potassium 4.3 (3.5-5.1) mmol/L Chloride 106 (98-107) mmol/L Carbon Dioxide 22 (22-30) mmol/L Anion Gap 7 mmol/L BUN 27 H (9-20) mg/dL Creatinine 1.00 (0.66-1.25) mg/dL Est GFR (CKD-EPI)AfAm 84 (>60 ml/min/1.73 sqM) Est GFR (CKD-EPI)NonAf 72 (>60 ml/min/1.73 sqM) Glucose 143 H (74-99) mg/dL Calcium 9.2 (8.4-10.2) mg/dL Total Bilirubin 0.5 (0.2-1.3) mg/dL AST 29 (17-59) U/L ALT 34 (4-49) U/L Alkaline Phosphatase 88 (38-126) U/L Total Protein 6.2 L (6.3-8.2) g/dL Albumin 3.7 (3.5-5.0) g/dL Disposition <Aisha Cummings - Last Filed: 06/18/23 19:46> Is patient prescribed a controlled substance at d/c from ED?: No Time of Disposition: 00:19 <Jaspreet Lomeli - Last Filed: 06/19/23 04:35> Clinical Impression: Allergy to antibiotic Disposition: HOME SELF-CARE Condition: Good Instructions (If sedation given, give patient instructions): Antihistamine (By mouth), Diphenhydramine (By mouth) Prescriptions: clindamycin HCL 300 mg PO TID 7 Days #21 capsule Famotidine [Pepcid] 20 mg PO DAILY 14 Days #14 tablet Referrals: Johnnie Kirk DO [REFERRING] - 1-2 days Jordin Biggs DPM [STAFF PHYSICIAN] - 1-2 days Forms: Area PCPs
[2023-06-18 20:12] VITALS: TEMP 98
[2023-06-18 23:23] LABS: HCT 40.3 % (39.0-53.0); HGB 13.7 gm/dL (13.0-17.5); MCH 30.5 pg (25.0-35.0); MCHC 33.9 g/dL (31.0-37.0); MCV 90.1 fL (80.0-100.0); Mean Platelet Volume 7.2; Platelet Count 193 k/uL (150-450); RBC 4.47 m/uL (4.30-5.90); WBC 10.7 k/uL (3.8-10.6)
[2023-06-18 23:49] LABS: ALT 34 U/L (4-49); AST 29 U/L (17-59); African American GFR (CKD) 84 (>60 ml/min/1.73 sqM); Albumin 3.7 g/dL (3.5-5.0); Alkaline Phosphatase 88 U/L (38-126); Anion Gap 7 mmol/L; Blood Urea Nitrogen 27 mg/dL (9-20); Calcium 9.2 mg/dL (8.4-10.2); Carbon Dioxide 22 mmol/L (22-30); Chloride 106 mmol/L (98-107); Glucose 143 mg/dL (74-99); Non-African American GFR(CKD) 72 (>60 ml/min/1.73 sqM); Potassium 4.3 mmol/L (3.5-5.1); Sodium 135 mmol/L (137-145); Total Bilirubin 0.5 mg/dL (0.2-1.3); Total Protein 6.2 g/dL (6.3-8.2)
[2023-06-19] MEDS: CLINDAMYCIN 150 MG CAP PO STA (00:31)
[2023-06-19] MEDS: FAMOTIDINE 20 MG TAB PO STA (00:32)
[2023-06-19 01:34] VITALS: BP 148/68; PULSE 74; RESP 16
== END 2023-06-19 01:30 | disposition home or self-care (01) ==
LOC: EC 19:29
DX: R21 Rash and other nonspecific skin eruption (principal); T36.8X5A Adverse effect of other systemic antibiotics, initial encounter; D72.829 Elevated white blood cell count, unspecified; E11.9 Type 2 diabetes mellitus without complications; I25.10 Atherosclerotic heart disease of native coronary artery without angina pectoris; I10 Essential (primary) hypertension; K21.9 Gastro-esophageal reflux disease without esophagitis; E78.5 Hyperlipidemia, unspecified; E07.9 Disorder of thyroid, unspecified; Z79.890 Hormone replacement therapy; Z79.84 Long term (current) use of oral hypoglycemic drugs; Z79.82 Long term (current) use of aspirin; Z79.02 Long term (current) use of antithrombotics/antiplatelets; Z88.1 Allergy status to other antibiotic agents; Z88.5 Allergy status to narcotic agent; Z91.018 Allergy to other foods; Z95.0 Presence of cardiac pacemaker; Z95.1 Presence of aortocoronary bypass graft; Z87.891 Personal history of nicotine dependence
CPT/HCPCS: 36415; 80053; 85027; 99283

== ENCOUNTER → 2023-09-05 | Outpatient (CLI) | payer MEDICARE ==
--- NOTE | 2023-09-05 19:51 | PE ---
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 Images are reviewed on the computer in the coronal, axial, and sagittal planes. Reconstructed rotating images are created on independent workstation and reviewed on the computer. A non-contrast CT is performed in conjunction with the PET scan. Glucose level 108 mg/dL CT DLP: 500 mGycm, Automated exposure control for dose reduction was used. COMPARISON: CT None, PET/CT 05/20/2023, FINDINGS: Mediastinal SUV mean is 1.9. Hepatic parenchyma SUV mean is 2.5. SKULL BASE AND NECK: * Lower neck lymph nodes decreased in size and FDG activity. The largest in the left neck measuring 7 mm in short axis previously 10 mm. Right neck largest now measuring 6 mm previously 11 mm. CHEST, MEDIASTINUM, AND HILAR REGION: Interval decrease in metabolic activity of the diffuse enlarged lymph nodes throughout the neck and thorax. There remains lymph nodes present in the mediastinum hav e all decreased in size and metabolic activity. The largest in the right low paratracheal region andra uring up to 12 mm in short axis ABDOMEN AND PELVIS: No FDG avid lymph nodes are identified within the abdomen or pelvis. Previous smaller lymph nodes hav e decreased in size., This largest measuring up to 3 mm in short axis. MUSCULOSKELETAL STRUCTURES: No suspicious radiotracer activity. OTHER CT: Atherosclerosis of the carotid bifurcations. Right shoulder arthroplasty hardware appears i ntact. Right chest wall [id number]. Sternotomy wires are present. Moderate to severe coronary ray ry calcifications. Aortic valve leaflet calcifications. Cholelithiasis. Right renal cyst. Left hip ar throplasty with hardware intact. Fat-containing bilateral hernias. Multilevel degeneration changes th roughout the spine. Atherosclerosis of the abdominal aorta. IMPRESSION: Positive response to therapy with decrease in metabolic activity of lymphadenopathy no remaining susp icious FDG avid lymph nodes at this time. Lymph nodes have also decreased in size throughout the medi astinum and neck but remain present.
== END | disposition home or self-care (01) ==
LOC: RADPETMAIN 06:52
PROVIDERS: ATTEND Internal Medicine
DX: C82.91 Follicular lymphoma, unspecified, lymph nodes of head, face, and neck (principal)
CPT/HCPCS: 78815; A9552

== ENCOUNTER → 2023-11-18 | Outpatient (CLI) | payer MEDICARE ==
--- NOTE | 2023-11-18 10:56 | PE ---
EXAMINATION TYPE: PET CT fusion skull to thigh DATE OF EXAM: 11/18/2023 CLINICAL INDICATION:Male, 78 years old with history of C82.91 lymphoma; TECHNIQUE: Following the intravenous administration of 12.6 mCi of F-18 FDG, whole body images are performed from the skull base to the midthigh. Images are reviewed on the computer in the coronal, a xial, and sagittal planes. Reconstructed rotating images are created on independent workstation and reviewed on the computer. A non-contrast CT is performed in conjunction with the PET scan. Glucose level 124 mg/dL CT DLP: 963 mGycm, Automated exposure control for dose reduction was used. COMPARISON: CT None, PET/CT 09/05/2023, MRI: None FINDINGS: Mediastinal SUV mean is 2.3. Hepatic parenchyma SUV mean is 2.9. SKULL BASE AND NECK: No enlarged FDG avid neck lymph nodes on today's exam CHEST, MEDIASTINUM, AND HILAR REGION: No suspicious radiotracer activity. ABDOMEN AND PELVIS: No FDG avid lymph nodes are identified within the abdomen or pelvis. MUSCULOSKELETAL STRUCTURES: No suspicious radiotracer activity. OTHER CT: Atherosclerosis of the carotid bifurcations. Right shoulder arthroplasty hardware appears i ntact. Right chest wall Rwllon-d-Tjbb. Sternotomy wires are present. Moderate to severe coronary ray ry calcifications. Aortic valve leaflet calcifications. Cholelithiasis. Right renal cyst. Left hip ar throplasty with hardware intact. Fat-containing bilateral hernias. Multilevel degeneration changes th roughout the spine. Atherosclerosis of the abdominal aorta. IMPRESSION: Positive response to therapy with no FDG avid or enlarged lymph nodes identified.
== END | disposition home or self-care (01) ==
LOC: RADPETMAIN 08:29
PROVIDERS: ATTEND Internal Medicine
DX: C82.91 Follicular lymphoma, unspecified, lymph nodes of head, face, and neck (principal); D50.9 Iron deficiency anemia, unspecified; Z71.3 Dietary counseling and surveillance
CPT/HCPCS: 78815; A9552

== ENCOUNTER → 2023-12-23 | Day surgery (SDC) | payer MEDICARE ==
[2023-12-17 16:10] VITALS: BMI 32.8
[~2023-12-23] MED LIST changes: -LACTATED RINGERS 1,000 ML IV SCH; -LIDOCAINE 1% (10MG/ML) FOR IV START INTRADERMA PRN; +LIDOCAINE 1% INJ 10MG/ML (20 ML MDV) ONE; +NALOXONE 0.4 MG/ML 1 ML VIAL IV PRN; +PHENYLEPHRINE-0.9% NACL SYG 1,000 MCG/10 ML SYRINGE ONE; +PROPOFOL 10 MG/ML 20 ML VIAL IV ONE; +fentaNYL (PF) 50 MCG/ML 2 ML AMP IV PRN; +fentaNYL (PF) 50 MCG/ML 2 ML AMP ONE
[2023-12-23] MEDS: LACTATED RINGERS 1,000 ML IV SCH (13:28)
[2023-12-23] MEDS: IV FLUID CONTINUATION 1,000 ML IV ONE (13:28)
[2023-12-23 13:31] LABS: Glucose,Whole Blood 117 mg/dL (70-110)
[2023-12-23] MEDS: ONDANSETRON 4 MG/2 ML VIAL IVP ONE (13:32)
[2023-12-23] MEDS: HEPARIN SODIUM,PORCINE 5,000 UNIT/ML 1 ML VIAL SQ PRN (13:32)
[2023-12-23] MEDS: ACETAMINOPHEN TAB 500 MG TAB PO PRN (13:32)
[2023-12-23] MEDS: DEXAMETHASONE SOD PHOSPHATE 4 MG/ML 1 ML VIAL IV ONE (13:32)
--- NOTE | 2023-12-23 14:14 | P.GSHP ---
History of Present Illness H&P Date: 12/23/23 Chief Complaint: Lymphoma 78-year-old male currently undergoing chemotherapy for B-cell lymphoma. Patient has poor IV access. Patient has between cycles. Here today for Port-A-Cath access placement. Past Medical History Past Medical History: Coronary Artery Disease (CAD), Cancer, Diabetes Mellitus, GERD/Reflux, Hyperlipidemia, Hypertension, Thyroid Disorder Additional Past Medical History / Comment(s): b-cell lymphoma. Last chemo 12/01/23. History of Any Multi-Drug Resistant Organisms: None Reported Past Surgical History: Coronary Bypass/CABG, Hernia Repair, Joint Replacement, Orthopedic Surgery, Pacemaker Additional Past Surgical History / Comment(s): right foot surgery, left knee surgery, right shoulder surgery, keesha cataracts Past Anesthesia/Blood Transfusion Reactions: No Reported Reaction Type of Cardiac Device: Permanent Pacemaker Device Placement Date:: k Smoking Status: Former smoker - Past Family History Father Family Medical History: Cancer Additional Family Medical History / Comment(s): colorectal Medications and Allergies Home Medications Medication Instructions Recorded Confirmed Type Aspirin 81 mg PO QAM 02/23/14 12/21/23 History Levothyroxine Sodium [Synthroid] 25 mcg PO QAM 02/23/14 12/21/23 History Omeprazole [PriLOSEC] 20 mg PO QAM 02/23/14 12/21/23 History Atorvastatin [Lipitor] 40 mg PO HS 06/09/22 12/21/23 History Cholecalciferol [Vitamin D3 (25 25 mcg PO QAM 06/09/22 12/21/23 History Mcg = 1000 Iu)] Furosemide [Lasix] 20 mg PO QAM 06/09/22 12/21/23 History Gabapentin 300 mg PO HS 06/09/22 12/21/23 History metFORMIN HCL 1 tab PO BID 09/15/22 12/21/23 History Acetaminophen [Tylenol Arthritis] 650 mg PO Q8H PRN 12/17/23 12/21/23 History Metoprolol Succinate (ER) [Toprol 50 mg PO QAM 12/17/23 12/21/23 History XL] Allergies Allergy/AdvReac Type Severity Reaction Status Date / Time cephalexin monohydrate Allergy Rash/Hives Verified 12/23/23 13:08 [From Keflex] hydrocodone bitartrate Allergy Hallucinati Verified 12/23/23 13:08 [From Lortab] ons sulfamethoxazole Allergy Rash/Hives Verified 12/23/23 13:08 [From Bactrim] trimethoprim [From Bactrim] Allergy Rash/Hives Verified 12/23/23 13:08 mushrooms Allergy Rash/Hives Uncoded 12/23/23 13:08 Surgical - Exam Vital Signs Temp Pulse Resp BP Pulse Ox 98.5 F 87 18 182/90 94 L 12/23/23 13:05 12/23/23 13:05 12/23/23 13:05 12/23/23 13:05 12/23/23 13:05 Physical exam: General: Well-developed, well-nourished HEENT: Normocephalic, sclerae nonicteric Abdomen: Nontender, nondistended Extremities: No edema Neuro: Alert and oriented Results - Labs Abnormal Lab Results - Last 24 Hours (Table) 12/23/23 Range/Units 13:26 POC Glucose (mg/dL) 117 H (70-110) mg/dL Assessment and Plan (1) Lymphoma Narrative/Plan: Will proceed with Port-A-Cath placement at this time. Risks of bleeding, infection, DVT, pneumothorax, catheter malfunction, anesthesia related complications were discussed. The patient understands and wishes to proceed. Current Visit: Yes Status: Acute Code(s): C85.90 - NON-HODGKIN LYMPHOMA, UNSPECIFIED, UNSPECIFIED SITE SNOMED Code(s): 904045196
[2023-12-23] MEDS: LIDOCAINE 1% INJ 10MG/ML (20 ML MDV) SQ ONE ×2 (14:55)
[2023-12-23] MEDS: HEPARIN SODIUM,PORCINE 100 UNIT/ML 5 ML VIAL IV ONE (14:56)
--- NOTE | 2023-12-23 15:19 | P.OP ---
Date of Procedure: 12/23/23 Procedure(s) Performed: PREOPERATIVE DIAGNOSIS: Lymphoma POSTOPERATIVE DIAGNOSIS: Same PROCEDURE: Port-A-Cath placement with fluoroscopic and ultrasound guidance SURGEON: Bela EBL: 5 cc ANESTHESIA: General COMPLICATIONS: None OPERATIVE PROCEDURE: Patient was brought and placed on the operative table in the supine position. The patient was placed under general anesthesia at that time. The chest and neck were prepped and draped in usual sterile fashion. The ultrasound probe was used to identify the location of the right internal jugular vein. The skin was localized with lidocaine. The Seldinger needle was advanced into the IJ under ultrasound guidance. The wire was advanced through the needle under fluoroscopic guidance into the superior vena cava. A port pocket was created in the right infraclavicular location. The catheter was tunneled from the wire entrance site to the port pocket. The port was then connected to the catheter. The dilator introducer was threaded over the guidewire. The guidewire and dilator were then removed. The catheter was advanced through the introducer and introducer was then removed. The tip was seen to be in the right atrial junction via fluoroscopy. A picture of the radiograph showing the tip of the catheter was taken. Port was flushed with both saline and a Hep-Lock solution. There was good flow both in and out of the port. The port was sutured in underlying tissues using 3-0 silk sutures. The subcutaneous tissues were reapproximated using 3-0 Vicryl sutures and the skin at both locations using 4-0 Monocryl sutures. Skin glue and sterile dressings then applied. DISPOSITION: Stable to recovery room
[2023-12-23 15:27] VITALS: TEMP 97.6
--- NOTE | 2023-12-23 16:02 | XR ---
EXAMINATION TYPE: XR chest 1V confirm line plcmt DATE OF EXAM: 12/23/2023 3:41 PM CLINICAL INDICATION: Male, 78 years old with history of Check Line placement; [facility] COMPARISON: Chest radiographs from 09/16/2022 TECHNIQUE: XR chest 1V confirm line plcmt Frontal view of the chest. FINDINGS: Lungs/Pleura: There is no evidence of pleural effusion, focal consolidation, or pneumothorax. Pulmonary vascularity: Unremarkable. Heart/mediastinum: Cardiomediastinal silhouette is enlarged. Atherosclerotic calcifications are seen in the aorta. Left atrial appendage occlusion device is present. Musculoskeletal: No acute osseous pathology. Midline sternotomy wires are noted. Right shoulder arthr oplasty changes with hardware in place. Other findings: None Lines/Tubes: Gvwbex-s-Zomm projecting over the right hemithorax with distal tip projecting over the superior vena cava. IMPRESSION: 1. Right central venous Rsyrdv-y-Swul tip projecting over the superior vena cava. 2. Cardiomegaly
[2023-12-23 16:57] VITALS: BP 160/66; PULSE 69; RESP 20
--- NOTE | 2024-01-20 10:35 | FL ---
EXAMINATION TYPE: FL guided central line placemt DATE OF EXAM: 12/23/2023 3:30 PM COMPARISON: Pre Operative Images if available both CT/MRI or plain film CLINICAL INDICATION: Male, 78 years old with history of INSERT PORT A CATH; TECHNIQUE: FL guided central line placemt, multiple fluoroscopic images provided for procedure. Total fluoroscopy time: 8 seconds Total submitted images to PACS: 1 DAP: 1.6518 mGym2 Gycm2 uGym2 cGycm2 or equivalent. FINDINGS: Fluoroscopic imaging for Port-A-Cath insertion no evidence for pneumothorax. Multilevel degeneration changes of the spine. Sternotomy wire changes present. Cardiac conduction leads present. IMPRESSION: 1. No evidence for intraoperative complication. 2. Please see the operative/procedural note for further details. [facility], , 01/20/2024 10:33 AM
== END ==
LOC: OR 12:21
PROVIDERS: ATTEND Surgery
DX: C82.91 Follicular lymphoma, unspecified, lymph nodes of head, face, and neck (principal); I11.9 Hypertensive heart disease without heart failure; I25.10 Atherosclerotic heart disease of native coronary artery without angina pectoris; Z95.1 Presence of aortocoronary bypass graft; E11.9 Type 2 diabetes mellitus without complications; E78.5 Hyperlipidemia, unspecified; D50.9 Iron deficiency anemia, unspecified; K21.9 Gastro-esophageal reflux disease without esophagitis; R00.1 Bradycardia, unspecified; Z79.82 Long term (current) use of aspirin; Z79.84 Long term (current) use of oral hypoglycemic drugs; Z79.890 Hormone replacement therapy; Z79.899 Other long term (current) drug therapy; Z87.891 Personal history of nicotine dependence; Z91.81 History of falling; Z95.0 Presence of cardiac pacemaker; Z96.611 Presence of right artificial shoulder joint; Z88.1 Allergy status to other antibiotic agents; Z88.5 Allergy status to narcotic agent; Z88.2 Allergy status to sulfonamides; Z91.018 Allergy to other foods; Z88.8 Allergy status to other drugs, medicaments and biological substances
CPT/HCPCS: 77001

== ENCOUNTER → 2024-05-22 | Outpatient (CLI) | payer MEDICARE ==
[2024-05-22 12:13] LABS: African American GFR (CKD) 75 (>60 ml/min/1.73 sqM); Blood Urea Nitrogen 21 mg/dL (9-20); Non-African American GFR(CKD) 65 (>60 ml/min/1.73 sqM)
--- NOTE | 2024-05-22 13:39 | CT ---
EXAMINATION TYPE: CT ChestAbdPelvis w con, CT soft tissue neck w con DATE OF EXAM: 05/22/2024 12:51 PM COMPARISON: 11/18/2023. CLINICAL INDICATION: Male, 78 years old with history of C82.91 LYMPHOMA; [facility], Follow up for lymphoma. Technique: CT imaging of the chest abdomen and pelvis with contrast. CT imaging of the neck with contrast. CT ChestAbdPelvis w con, CT soft tissue neck w con; Multiple axial images were obtained. Two-dimensio nal coronal and sagittal reconstructions were obtained. Contrast used:50ml mL of Isovue 300 with IV Contrast, (None if empty) Oral contrast used: without Oral Contrast CT DLP: 2871 (accession [id number]), 671.3 (accession [id number]) mGycm, Automated exposure control for d ose reduction was used. Findings: Brain: Visualized portions are grossly unremarkable. Orbits: Unremarkable Sinuses: Grossly unremarkable. Spaces of the neck: Clear and symmetric. Musculoskeletal: No acute osseous pathology. Lymph nodes: Multiple nonenlarged lymph nodes are seen along both anterior chains of the neck. Vascular structures: Visualized major arteries are patent without evidence of aneurysm. Atheroscleros is of the carotid bifurcations. Thoracic Inlet/airway: Airway is patent. The lung apices are clear. Soft tissues/Thyroid: Thyroid and remainder of the soft tissues are unremarkable. Left no neck 5 mm l ymph node Other: none. CHEST: LUNGS/ PLEURA: No focal consolidation, pneumothorax or pleural effusion. AIRWAY: Patent and unremarkable. HEART: Theheart is mildly enlarged for size. Coronary artery calcifications and/or stents present. Leads remain in the right ventricle and right atrium. Left atrial appendage occlusion device. MEDIASTINUM: No gross evidence of adenopathy. Nonenlarged lymph nodes noted as seen on prior. VASCULATURE: Atherosclerotic calcifications are present throughout the aorta and its branches. The c hest wall Jywjjk-c-Ntnj with tip draining the superior vena cava. MUSCULOSKELETAL: No acute osseous abnormalities. Right shoulder arthroplasty appears intact. Multilev el degeneration changes throughout the spine. SOFT TISSUES/LYMPH NODES: Unremarkable. LOWER NECK: No significant findings. ABDOMEN: ABDOMEN LIVER: Unremarkable GALLBLADDER AND BILE DUCTS: Layering increased densities within the lumen consistent with gallstones are present. PANCREAS: Lipomatous pseudohypertrophy changes. SPLEEN: Unremarkable. ADRENAL GLANDS: Unremarkable. KIDNEYS AND URETERS: No evidence of hydronephrosis or renal calculus. The ureters are unremarkable. Bilateral simple appearing probable renal cysts. PELVIS BLADDER: Unremarkable REPRODUCTIVE: Unremarkable. ABDOMEN & PELVIS STOMACH AND BOWEL: No evidence of bowel obstruction. PERITONEUM/RETROPERITONEUM: No evidence of pneumoperitoneum or free fluid. VASCULATURE: Moderate atherosclerotic calcifications are present throughout the abdominal aorta and i ts branches. No evidence of aortic aneurysm. MUSCULOSKELETAL: No acute osseous abnormalities, left hip arthroplasty appears intact. Mild degenerat ion changes of the right hip with subchondral cystic change and sclerosis. LYMPH NODES: No gross evidence for lymphadenopathy. SOFT TISSUE/ABDOMINAL WALL: Unremarkable IMPRESSION: 1. No evidence for enlarging lymph nodes or mass. There remains mediastinal prominent lymph nodes no enlarged lymph nodes in the chest abdomen pelvis or neck. Continued attention follow-up PET/CTs. 2. Cholelithiasis. 3. Simple appearing bilateral renal cysts. 4. Left hip arthroplasty intact. 5. Right chest wall Atcwol-n-Eeoq with tip terminating in the superior vena cava. 6. Mild cardiomegaly. 7. Hepatic connections in appropriate position. [facility], , 05/22/2024 1:37 PM
== END | disposition home or self-care (01) ==
LOC: RADCTMAIN 11:08
PROVIDERS: ATTEND Internal Medicine
DX: C82.91 Follicular lymphoma, unspecified, lymph nodes of head, face, and neck (principal); K80.20 Calculus of gallbladder without cholecystitis without obstruction; N28.1 Cyst of kidney, acquired; D50.9 Iron deficiency anemia, unspecified; I70.0 Atherosclerosis of aorta; I51.7 Cardiomegaly; Z71.3 Dietary counseling and surveillance; Z96.642 Presence of left artificial hip joint
CPT/HCPCS: 82565; 84520; 70491; 71260; 74177; J1642; Q9967

== ENCOUNTER 2024-06-18 16:43 | Inpatient (IN) | payer OTHER, MEDICARE ==
--- NOTE | 2024-06-18 16:46 | ED ---
SOB HPI - General Stated Complaint: MIRTA Time Seen by Provider: 06/18/24 16:44 Source: RN notes reviewed, old records reviewed Mode of arrival: EMS Limitations: no limitations - History of Present Illness Initial Comments: This is a 78-year-old male to the ER for shortness of breath. Patient has had 3 to 5 days of shortness of breath increasing. Patient presented to urgent care today for shortness of breath and was sent to the ER by EMS because of low oxygen and suspected pneumonia. Patient has complicated medical history, lymphoma. Denying fevers or chest pain. No family numbers have been sick. Patient does not have any recent inpatient hospitalizations. Patient states his breathing does appear improved but at home especially with exertion he becomes very fatigued and short of breath MD Complaint: shortness of breath, cough -: days(s) (5) Severity: moderate Severity scale (1-10): 7 Improves With: rest Worsens With: exertion Known History Of: COPD (Underlying history of smoking) Context: recent URI, recent illness Associated Symptoms: cough Treatments Prior to Arrival: oxygen, bronchodilator - Related Data Home Medications Medication Instructions Recorded Confirmed Aspirin 81 mg PO DAILY 02/23/14 06/19/24 Levothyroxine Sodium [Synthroid] 25 mcg PO DAILY 02/23/14 06/19/24 Omeprazole [PriLOSEC] 20 mg PO DAILY 02/23/14 06/19/24 Atorvastatin [Lipitor] 40 mg PO HS 06/09/22 06/19/24 Furosemide [Lasix] 20 mg PO DAILY 06/09/22 06/19/24 Gabapentin 300 mg PO HS 06/09/22 06/19/24 metFORMIN HCL 500 mg PO BID 09/15/22 06/19/24 Acetaminophen [Tylenol Arthritis] 650 mg PO BID 12/17/23 06/19/24 Metoprolol Succinate (ER) [Toprol 50 mg PO DAILY 12/17/23 06/19/24 XL] Cholecalciferol (Vitamin D3) 50 mcg PO BID 06/18/24 06/19/24 [Vitamin D3 (50 Mcg = 2000 Iu)] Docusate [Colace] 100 mg PO HS PRN 06/18/24 06/19/24 valACYclovir HCL [Valtrex] 500 mg PO BID PRN 06/18/24 06/19/24 Previous Rx's Medication Instructions Recorded Albuterol Inhaler [Ventolin Hfa 2 puff INHALATION Q6H PRN #1 each 06/22/24 Inhaler] Doxycycline 100 mg PO BID 7 Days #14 tab 06/22/24 Oseltamivir [Tamiflu] 75 mg PO Q12HR 2 Days #4 cap 06/22/24 Allergies Allergy/AdvReac Type Severity Reaction Status Date / Time cephalexin monohydrate Allergy Rash/Hives Verified 06/18/24 19:42 [From Keflex] hydrocodone bitartrate Allergy Hallucinati Verified 06/18/24 19:42 [From Lortab] ons sulfamethoxazole Allergy Rash/Hives Verified 06/18/24 19:42 [From Bactrim] trimethoprim [From Bactrim] Allergy Rash/Hives Verified 06/18/24 19:42 mushrooms Allergy Rash/Hives Uncoded 06/18/24 19:42 Review of Systems ROS Statement: Those systems with pertinent positive or pertinent negative responses have been documented in the HPI. ROS Other: All systems not noted in ROS Statement are negative. Past Medical History Past Medical History: Coronary Artery Disease (CAD), Cancer, Diabetes Mellitus, GERD/Reflux, Hyperlipidemia, Hypertension, Thyroid Disorder Additional Past Medical History / Comment(s): b-cell lymphoma. Last chemo 12/01/23. History of Any Multi-Drug Resistant Organisms: None Reported Past Surgical History: Coronary Bypass/CABG, Hernia Repair, Joint Replacement, Orthopedic Surgery, Pacemaker Additional Past Surgical History / Comment(s): right foot surgery, left knee surgery, right shoulder surgery, keesha cataracts Past Anesthesia/Blood Transfusion Reactions: No Reported Reaction Type of Cardiac Device: Permanent Pacemaker Device Placement Date:: Smoking Status: Former smoker - Past Family History Father Family Medical History: Cancer Additional Family Medical History / Comment(s): colorectal General Exam General appearance: alert, in no apparent distress Head exam: Present: atraumatic, normocephalic, normal inspection Eye exam: Present: normal appearance, PERRL, EOMI. Absent: scleral icterus, conjunctival injection, periorbital swelling ENT exam: Present: normal exam, mucous membranes moist Neck exam: Present: normal inspection. Absent: tenderness, meningismus, lymphadenopathy Respiratory exam: Present: normal lung sounds bilaterally, wheezes, decreased breath sounds, prolonged expiratory. Absent: respiratory distress, rales, rhonchi, stridor Cardiovascular Exam: Present: normal rhythm (Paced rhythm), normal heart sounds. Absent: systolic murmur, diastolic murmur, rubs, gallop, clicks GI/Abdominal exam: Present: soft, normal bowel sounds. Absent: distended, tenderness, guarding, rebound, rigid Extremities exam: Present: normal inspection, full ROM, normal capillary refill. Absent: tenderness, pedal edema, joint swelling, calf tenderness Back exam: Present: normal inspection Neurological exam: Present: alert, oriented X3, CN II-XII intact Psychiatric exam: Present: normal affect, normal mood Skin exam: Present: warm, dry, intact, normal color. Absent: rash Course Vital Signs 06/18/24 06/18/24 06/18/24 16:44 16:49 17:27 Temperature 98 F Pulse Rate 87 90 Respiratory 12 22 20 Rate Blood Pressure 115/66 107/55 O2 Sat by Pulse 94 L 91 L Oximetry 06/18/24 06/18/24 06/18/24 17:32 17:44 18:00 Temperature Pulse Rate 85 80 84 Respiratory 20 Rate Blood Pressure O2 Sat by Pulse 94 L Oximetry 06/18/24 06/19/24 06/19/24 20:52 01:35 06:35 Temperature 98.5 F Pulse Rate 83 70 69 Respiratory 22 18 18 Rate Blood Pressure 151/65 148/72 O2 Sat by Pulse 95 95 95 Oximetry 06/19/24 06/19/24 06/19/24 07:49 08:00 11:00 Temperature 97.6 F Pulse Rate 80 81 80 Respiratory 22 Rate Blood Pressure 125/58 O2 Sat by Pulse 95 97 Oximetry 06/19/24 06/19/24 06/19/24 11:35 11:52 15:26 Temperature Pulse Rate 71 81 84 Respiratory Rate Blood Pressure O2 Sat by Pulse Oximetry 06/19/24 06/19/24 06/19/24 15:39 17:18 20:13 Temperature 97.6 F Pulse Rate 86 89 73 Respiratory 24 Rate Blood Pressure 128/58 O2 Sat by Pulse 95 Oximetry 06/19/24 06/19/24 06/20/24 20:25 22:45 05:17 Temperature Pulse Rate 85 75 63 Respiratory 18 20 Rate Blood Pressure 135/63 154/60 O2 Sat by Pulse 95 97 Oximetry 06/20/24 08:13 Temperature Pulse Rate 85 Respiratory 20 Rate Blood Pressure 140/68 O2 Sat by Pulse 100 Oximetry - Reevaluation(s) Reevaluation #1: 06/18/24 16:46 Medical records reviewed Oxygen 88% at urgent care improved here on supplemental O2 Chest x-ray at urgent care showing left lower lobe pneumonia Reevaluation #2: 06/18/24 17:28 Patient's breathing continues to improve with breathing treatments, now 3 DuoNebs Reevaluation #3: 06/18/24 20:21 Patient informed of results questions answered Reevaluation #4: Was pt. sent in by a medical professional or institution (, [facility], [employer], urgent care, hospital, or snf...) When possible be specific @ -no Did you speak to anyone other than the patient for history (EMS, parent, family, police, friend...)? What history was obtained from this source @ -no Did you review nursing and triage notes (agree or disagree)? Why? @ -agree Are old charts reviewed (outside hosp., previous admission, EMS record, old EKG, old radiological studies, urgent care reports/EKG's, snf records)? Report findings @ -yes Differential Diagnosis (chest pain, altered mental status, abdominal pain women, abdominal pain men, vaginal bleeding, weakness, fever, dyspnea, syncope, headache, dizziness, GI bleed, back pain, seizure, CVA, palpatations, mental health, musculoskeletal)? @ -prior EKG interpreted by me (3pts min.). @ -yes X-rays interpreted by me (1pt min.). @ -yes negative for acute disease CT interpreted by me (1pt min.). @ -no U/S interpreted by me (1pt. min.). @ -no What testing was considered but not performed or refused? (CT, X-rays, U/S, labs)? Why? @ -none What meds were considered but not given or refused? Why? @ -none Did you discuss the management of the patient with other professionals (professionals i.e. [facility] Brooks, PELT [employer]AD[employer], lab, RT, psych nurse, addiction social worker, supervisor glycerin, teacher, regulatory compliance officer, briefcase sewer)? Give summary @ -no Was smoking cessation discussed for >3mins.? @ -no Was critical care preformed (if so, how long)? @ -yes31 Were there social determinants of health that impacted care today? How? (Homelessness, low income, unemployed, alcoholism, drug addiction, transportation, low edu. Level, literacy, decrease access to med. care, long-term, rehab)? @ -none Was there de-escalation of care discussed even if they declined (Discuss DNR or withdrawal of care, Hospice)? DNR status @ -no What co-morbidities impacted this encounter? (DM, HTN, Smoking, COPD, CAD, Cancer, CVA, ARF, Chemo, Hep., AIDS, mental health diagnosis, sleep apnea, morbid obesity)? @ -none Was patient admitted / discharged? Hospital course, mention meds given and route, prescriptions, significant lab abnormalities, going to OR and other pertinent info. @ - 78 male with hypoxic respiratory failure history of COPD underlying cancer, placed on antibiotics for suspected pneumonia but is positive for influenza Admitted Undiagnosed new problem with uncertain prognosis? @ -no Drug Therapy requiring intensive monitoring for toxicity (Heparin, Nitro, Insulin, Cardizem)? @ -no Were any procedures done? @ -no Diagnosis/symptom? @ -COPD influenza hypoxia Acute, or Chronic, or Acute on Chronic? @ -Acute Uncomplicated (without systemic symptoms) or Complicated (systemic symptoms)? @ -Complicated Side effects of treatment? @ -no Exacerbation, Progression, or Severe Exacerbation? @ -exacerbation Poses a threat to life or bodily function? How? (Chest pain, [place], [place], pneumonia, PE, COPD, DKA, ARF, appy, cholecystitis, CVA, Diverticulitis, Homicidal, Suicidal, threat to staff... and all critical care pts) @ -yes respiratory failure Reevaluation #5: Differential Dyspnea: Coronary syndrome, arrhythmia, tamponade, asthma, COPD, pulmonary embolism, pneumonia, pneumothorax, pulmonary effusion, anaphylaxis, diabetic ketoacidosis, flailed chest, pulmonary contusion, diaphragmatic rupture, anemia, n euromuscular, this is not meant to be an all-inclusive list. - Consultations Consultation #1: Spoke with [facility] who agrees to admit this patient Medical Decision Making - Medical Decision Making 78 male with hypoxic respiratory failure history of COPD underlying cancer, placed on antibiotics for suspected pneumonia but is positive for influenza - Lab Data Result diagrams: 06/21/24 07:07 06/22/24 07:51 Lab Results 06/18/24 06/18/24 06/18/24 Range/Units 16:51 16:51 16:51 WBC 3.9 (3.8-10.6) k/uL RBC 4.30 (4.30-5.90) m/uL Hgb 12.7 L (13.0-17.5) gm/dL Hct 38.3 L (39.0-53.0) % MCV 89.1 (80.0-100.0) fL MCH 29.6 (25.0-35.0) pg MCHC 33.2 (31.0-37.0) g/dL RDW 13.7 (11.5-15.5) % Plt Count 96 L (150-450) k/uL MPV 8.4 Neutrophils % 63 % Lymphocytes % 24 % Monocytes % 9 % Eosinophils % 1 % Basophils % 0 % Neutrophils # 2.5 (1.3-7.7) k/uL Lymphocytes # 1.0 (1.0-4.8) k/uL Monocytes # 0.4 (0-1.0) k/uL Eosinophils # 0.0 (0-0.7) k/uL Basophils # 0.0 (0-0.2) k/uL Manual Slide Review Performed PT 11.4 (10.0-12.5) sec INR 1.0 (<1.2) APTT 27.9 (22.0-30.0) sec D-Dimer 1.27 H (<0.60) mg/L FEU Sodium 135 L (137-145) mmol/L Potassium 3.4 L (3.5-5.1) mmol/L Chloride 99 (98-107) mmol/L Carbon Dioxide 24 (22-30) mmol/L Anion Gap 12 mmol/L BUN 38 H (9-20) mg/dL Creatinine 1.42 H (0.66-1.25) mg/dL Est GFR (CKD-EPI)AfAm 55 (>60 ml/min/1.73 sqM) Est GFR (CKD-EPI)NonAf 47 (>60 ml/min/1.73 sqM) Glucose 103 H (74-99) mg/dL Plasma Lactic Acid Ildefonso (0.7-2.0) mmol/L Calcium 8.8 (8.4-10.2) mg/dL Magnesium 1.4 L (1.6-2.3) mg/dL Total Bilirubin 1.0 (0.2-1.3) mg/dL AST 232 H (17-59) U/L ALT 220 H (4-49) U/L Alkaline Phosphatase 74 (38-126) U/L Troponin I (0.000-0.034) ng/mL NT-Pro-B Natriuret Pep 24344 pg/mL Total Protein 5.7 L (6.3-8.2) g/dL Albumin 3.5 (3.5-5.0) g/dL Influenza Type A (PCR) (Not Detectd) Influenza Type B (PCR) (Not Detectd) RSV (PCR) (Not Detectd) SARS-CoV-2 (PCR) (Not Detectd) 06/18/24 06/18/24 06/18/24 Range/Units 16:51 16:51 18:00 WBC (3.8-10.6) k/uL RBC (4.30-5.90) m/uL Hgb (13.0-17.5) gm/dL Hct (39.0-53.0) % MCV (80.0-100.0) fL MCH (25.0-35.0) pg MCHC (31.0-37.0) g/dL RDW (11.5-15.5) % Plt Count (150-450) k/uL MPV Neutrophils % % Lymphocytes % % Monocytes % % Eosinophils % % Basophils % % Neutrophils # (1.3-7.7) k/uL Lymphocytes # (1.0-4.8) k/uL Monocytes # (0-1.0) k/uL Eosinophils # (0-0.7) k/uL Basophils # (0-0.2) k/uL Manual Slide Review PT (10.0-12.5) sec INR (<1.2) APTT (22.0-30.0) sec D-Dimer (<0.60) mg/L FEU Sodium (137-145) mmol/L Potassium (3.5-5.1) mmol/L Chloride (98-107) mmol/L Carbon Dioxide (22-30) mmol/L Anion Gap mmol/L BUN (9-20) mg/dL Creatinine (0.66-1.25) mg/dL Est GFR (CKD-EPI)AfAm (>60 ml/min/1.73 sqM) Est GFR (CKD-EPI)NonAf (>60 ml/min/1.73 sqM) Glucose (74-99) mg/dL Plasma Lactic Acid Ildefonso 1.4 (0.7-2.0) mmol/L Calcium (8.4-10.2) mg/dL Magnesium (1.6-2.3) mg/dL Total Bilirubin (0.2-1.3) mg/dL AST (17-59) U/L ALT (4-49) U/L Alkaline Phosphatase (38-126) U/L Troponin I 0.478 H* (0.000-0.034) ng/mL NT-Pro-B Natriuret Pep pg/mL Total Protein (6.3-8.2) g/dL Albumin (3.5-5.0) g/dL Influenza Type A (PCR) Detected A (Not Detectd) Influenza Type B (PCR) Not Detected (Not Detectd) RSV (PCR) Not Detected (Not Detectd) SARS-CoV-2 (PCR) Not Detected (Not Detectd) - EKG Data -: EKG Interpreted by Me (EKG is paced 88 ND 206 QRS 186 QTc 520) - Radiology Data Radiology results: report reviewed (Chest x-ray is negative for acute disease CT angio chest negative for PE positive for multifocal pneumonia), image reviewed Critical Care Time Critical Care Time: Yes Total Critical Care Time: 31 Disposition Clinical Impression: Acute exacerbation of chronic obstructive pulmonary disease, Acute respiratory failure, Hypoxia, Influenza A, Lymphoma, Pneumonia Disposition: ADMITTED IP TO THIS HOSP Condition: Serious Is patient prescribed a controlled substance at d/c from ED?: No Time of Disposition: 20:20
[2024-06-18 17:16] LABS: Basophils % (A) 0 %; Eosinophils % (A) 1 %; HCT 38.3 % (39.0-53.0); HGB 12.7 gm/dL (13.0-17.5); Lymphocytes % (A) 24 %; MCH 29.6 pg (25.0-35.0); MCHC 33.2 g/dL (31.0-37.0); MCV 89.1 fL (80.0-100.0); Mean Platelet Volume 8.4; Monocytes # (A) 0.4 k/uL (0-1.0); Monocytes % (A) 9 %; Neutrophils # (A) 2.5 k/uL (1.3-7.7); Neutrophils % (A) 63 %; RDW 13.7 % (11.5-15.5); WBC 3.9 k/uL (3.8-10.6)
[2024-06-18 17:17] LABS: Partial Thromboplastin Time 27.9 sec (22.0-30.0); Prothrombin Time 11.4 sec (10.0-12.5)
--- NOTE | 2024-06-18 17:20 | XR ---
EXAMINATION TYPE: XR chest 2V DATE OF EXAM: 06/18/2024 5:15 PM COMPARISON: Prior chest radiograph 12/23/2023. CLINICAL INDICATION: Male, 78 years old with history of difficulty breathing; [facility] TECHNIQUE: XR chest 2V Frontal and lateral views of the chest. FINDINGS: Lungs/Pleura: There is no evidence of pleural effusion, focal consolidation, or pneumothorax. Vascularity: Right chest wall port catheter distal catheter tip terminating near the cavoatrial junct ion. Heart/mediastinum: Stable cardiomegaly. Median sternotomy wires. Musculoskeletal: No acute osseous pathology. Right shoulder arthroplasty. Other findings: None Lines/Tubes: Left chest wall cardiac pacemaker device with leads overlying the region of the right atrium and righ t ventricle. IMPRESSION: No acute cardiopulmonary disease/process. [facility], , 06/18/2024 5:17 PM
[2024-06-18 17:27] LABS: Platelet Count 96 k/uL (150-450)
[2024-06-18] MEDS: SODIUM CHLORIDE 0.9% 1,000 ML IV STA (17:27)
[2024-06-18 17:31] LABS: ALT 220 U/L (4-49); AST 232 U/L (17-59); African American GFR (CKD) 55 (>60 ml/min/1.73 sqM); Albumin 3.5 g/dL (3.5-5.0); Alkaline Phosphatase 74 U/L (38-126); Anion Gap 12 mmol/L; Blood Urea Nitrogen 38 mg/dL (9-20); Calcium 8.8 mg/dL (8.4-10.2); Carbon Dioxide 24 mmol/L (22-30); Chloride 99 mmol/L (98-107); Glucose 103 mg/dL (74-99); Magnesium 1.4 mg/dL (1.6-2.3); Non-African American GFR(CKD) 47 (>60 ml/min/1.73 sqM); Potassium 3.4 mmol/L (3.5-5.1); Sodium 135 mmol/L (137-145); Total Protein 5.7 g/dL (6.3-8.2)
[2024-06-18] MEDS: IPRATROPIUM-ALBUTEROL 3 ML NEB INHALATION STA (17:31)
[2024-06-18 17:41] LABS: NT-Pro-B-Type Natriuretic Pept 13800 pg/mL
[2024-06-18] MEDS: POTASSIUM BICARBONATE/CIT AC 20 MEQ TABLET.EFF PO ONE (18:25)
[2024-06-18] MEDS: MAGNESIUM OXIDE 400 MG TAB PO STA ×2 (18:25)
[2024-06-18] MEDS: MAGNESIUM SULFATE-D5W PMX 1 GM in DEXTROSE/WATER 1 100ML.BAG IVPB ONE (18:28)
[2024-06-18 18:52] LABS: Influenza A Detected (Not Detectd); Influenza B Not Detected (Not Detectd); RSV Not Detected (Not Detectd)
--- NOTE | 2024-06-18 19:11 | CT ---
EXAMINATION TYPE: CT angio chest DATE OF EXAM: 06/18/2024 6:54 PM COMPARISON: Prior CT study 05/22/2024. CLINICAL INDICATION: Male, 78 years old with history of pe; SOB X 3 weeks, hx of B-Cell lymphoma- la st chemo 1.5 weeks ago. Positive dimer TECHNIQUE/CONTRAST: CTA scan of the thorax is performed with IV Contrast, patient injected with 65 mL of Isovue 370, MIP images are created and reviewed these are created on a separate workstation.. CT DLP: 753.2 mGycm, Automated exposure control for dose reduction was used. FINDINGS: Pulmonary Artery: There is no evidence for a filling defect within the pulmonary vasculature to sugge st acute pulmonary embolism. The pulmonary artery is of normal size. Right chest wall port catheter with distal catheter tip terminating near the cavoatrial junction. Lungs/Pleura: Patchy groundglass nodular opacities throughout the bilateral lungs, most pronounced in the left lower lobe. Scattered tree-in-bud nodularity. No sizable pleural effusion. Airway: Large airways are patent. Heart: Cardiomegaly without significant pericardial effusion. Coronary artery calcifications. Median sternotomy wires and postsurgical changes suggestive of CABG. Left chest wall cardiac pacemaker devic e leads terminating in the right atrium and right ventricle. Vasculature: No evidence of aortic aneurysm. Mediastinum: Multiple mildly prominent mediastinal lymph nodes. Mildly prominent right hilar lymph no kaleb. No pathologic left hilar lymphadenopathy. Musculoskeletal: No acute osseous abnormalities. Multilevel thoracic spine degenerative changes. Righ t shoulder arthroplasty. Soft Tissues/lymph nodes: Unremarkable. Lower neck: No significant findings. Upper Abdomen: No significant acute findings. Fatty parenchymal atrophy of the pancreas. Cholelithias is. Simple cysts in bilateral kidneys. IMPRESSION: 1. No evidence of acute pulmonary embolism. 2. Patchy groundglass opacities and tree-in-bud nodularity throughout the visualized lungs suggestiv e of multifocal atypical infectious etiology such as pneumonia with bronchiolitis. Inflammatory pneum onitis would also be considered possible. [facility], , 06/18/2024 7:09 PM
[2024-06-18] MEDS ORDERED: MORPHINE SULFATE 4 MG/ML SYRINGE IV PRN (20:18)
[2024-06-18] MEDS ORDERED: ONDANSETRON 4 MG/2 ML VIAL IVP PRN (20:18)
[2024-06-18] MEDS ORDERED: NALOXONE 0.4 MG/ML 1 ML VIAL IV PRN (20:18)
[2024-06-18] MEDS ORDERED: IBUPROFEN 600 MG TAB PO PRN (20:20)
[2024-06-18] MEDS ORDERED: ACETAMINOPHEN TAB 325 MG TAB PO PRN (20:20)
[2024-06-18] MEDS: OSELTAMIVIR 75 MG CAP PO SCH (20:22)
[2024-06-18] MEDS: KETOROLAC 15 MG/ML 1 ML VIAL IVP STA (20:37)
[2024-06-18] MEDS: DEXAMETHASONE SOD PHOSPHATE 10 MG/ML 1 ML VIAL IVP STA (20:37)
[2024-06-18] MEDS: OSELTAMIVIR 75 MG CAP PO STA (20:39)
[2024-06-18] MEDS: ACETAMINOPHEN IV (For NPO) 1,000 MG in EMPTY BAG 1 BAG IVPB STA (21:08)
[2024-06-18] MEDS ORDERED: IPRATROPIUM-ALBUTEROL 3 ML NEB INHALATION PRN (21:36)
[2024-06-18] MEDS: SODIUM CHLORIDE 0.9% 1,000 ML IV SCH (22:11)
[2024-06-18] MEDS: AZITHROMYCIN 500 MG in SODIUM CHLORIDE 0.9% 250 ML IVPB ONE (22:17)
[2024-06-19] MEDS ORDERED: ALBUTEROL NEBULIZED 2.5 MG/3 ML INHALATION SCH
--- NOTE | 2024-06-19 06:20 | P.CNPUL ---
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 Approximately 5 days ago, patient developed URI-like symptoms including runny nose, sore throat, cough. His appetite has been poor. Previous nausea and vomiting. Severe fatigue and generalized weakness. Developed progressively worsening increased work of breathing, went to a local urgent care center yesterday. Noted to be hypoxic, there was a concern for pneumonia, and patient was directed to emergency department. Workup at our facility, including a viral screen positive for influenza A. A chest CTA did not show any evidence of pulmonary embolism. There was patchy groundglass opacities and tree-in-bud nodularity bilaterally, concerning for multifocal atypical infectious etiology with bronchiolitis. Patient was started on Tamiflu 75 mg twice daily. Also, empirically placed on a combination of azithromycin and Rocephin in the ED. Further workup: Included CBC with a WBC count of 3.9, hemoglobin 12.7, platelets 96,000. CMP: Sodium 135, potassium 3.4, chloride 99, serum bicarb 24, BUN 38, creatinine 1.42, glucose 103. Lactic 1.4. AST 232, ALT 220, ALP 74. EKG: Ventricularly paced, rate 88 bpm. Serial troponins were elevated at 0.48, 0.3, and 0.24 respectively. NT proBNP significantly elevated at 13,800. Normal saline infusing at 75 mL/h. Patient currently being evaluated in the emergency department. He is resting comfortably on 2 L/min nasal cannula. No respiratory distress noted. Denies any chest pain, heart palpitations, lightheadedness or syncopal events, orthopnea, or lower extremity edema. Most recent available echocardiogram from May 2022, which demonstrated a mildly reduced left ventricular ejection fraction of 45%. No significant notable valvular abnormalities were reported. Vital signs are stable. Review of Systems Constitutional: Reports fatigue, Reports poor appetite, Reports weakness, Reports weight loss (Approximately 5 or 6 pounds over the last week), Denies chills, Denies fever, Denies night sweats Ears, nose, mouth and throat: Reports post-nasal drip, Reports sore throat, Denies dysphagia, Denies headache, Denies nasal congestion, Denies nasal discharge, Denies sinus pain, Denies sinus pressure Cardiovascular: Denies chest pain, Denies leg edema, Denies lightheadedness, Denies orthopnea, Denies palpitations, Denies paroxysmal nocturnal dyspnea, Denies syncope Respiratory: Reports congestion, Reports cough, Reports dyspnea, Denies cough with sputum, Denies hemoptysis Gastrointestinal: Reports loss of appetite, Reports nausea, Reports vomiting, Denies abdominal pain, Denies diarrhea, Denies hematemesis, Denies hematochezia, Denies melena Genitourinary: Denies dysuria Musculoskeletal: Denies limitation of motion Integumentary: Reports rash Neurological: Denies seizures, Denies syncope Psychiatric: Denies anxiety, Denies depression Past Medical History Past Medical History: Coronary Artery Disease (CAD), Cancer, Diabetes Mellitus, GERD/Reflux, Hyperlipidemia, Hypertension, Thyroid Disorder Additional Past Medical History / Comment(s): b-cell lymphoma. Last chemo 12/01/23. History of Any Multi-Drug Resistant Organisms: None Reported Past Surgical History: Coronary Bypass/CABG, Hernia Repair, Joint Replacement, Orthopedic Surgery, Pacemaker Additional Past Surgical History / Comment(s): right foot surgery, left knee surgery, right shoulder surgery, keesha cataracts Past Anesthesia/Blood Transfusion Reactions: No Reported Reaction Type of Cardiac Device: Permanent Pacemaker Device Placement Date:: unk Smoking Status: Former smoker - Past Family History Father Family Medical History: Cancer Additional Family Medical History / Comment(s): colorectal Medications and Allergies Home Medications Medication Instructions Recorded Confirmed Type Aspirin 81 mg PO DAILY 02/23/14 06/18/24 History Levothyroxine Sodium [Synthroid] 25 mcg PO DIRECTED 02/23/14 06/18/24 History Omeprazole [PriLOSEC] 20 mg PO DAILY 02/23/14 06/18/24 History Atorvastatin [Lipitor] 40 mg PO DIRECTED 06/09/22 06/18/24 History Furosemide [Lasix] 20 mg PO DIRECTED 06/09/22 06/18/24 History Gabapentin 300 mg PO DIRECTED 06/09/22 06/18/24 History metFORMIN HCL 500 mg PO DIRECTED 09/15/22 06/18/24 History Acetaminophen [Tylenol Arthritis] 650 mg PO BID 12/17/23 06/18/24 History Metoprolol Succinate (ER) [Toprol 50 mg PO DIRECTED 12/17/23 06/18/24 History XL] Cholecalciferol (Vitamin D3) 50 mcg PO BID 06/18/24 06/18/24 History [Vitamin D3 (50 Mcg = 2000 Iu)] Docusate [Colace] 100 mg PO HS PRN 06/18/24 06/18/24 History Losartan [Cozaar] 50 mg PO DIRECTED 06/18/24 06/18/24 History valACYclovir HCL [Valtrex] 500 mg PO DIRECTED 06/18/24 06/18/24 History Allergies Allergy/AdvReac Type Severity Reaction Status Date / Time cephalexin monohydrate Allergy Rash/Hives Verified 06/18/24 19:42 [From Keflex] hydrocodone bitartrate Allergy Hallucinati Verified 06/18/24 19:42 [From Lortab] ons sulfamethoxazole Allergy Rash/Hives Verified 06/18/24 19:42 [From Bactrim] trimethoprim [From Bactrim] Allergy Rash/Hives Verified 06/18/24 19:42 mushrooms Allergy Rash/Hives Uncoded 06/18/24 19:42 Physical Exam Vitals: Vital Signs Temp Pulse Resp BP Pulse Ox 06/19/24 01:35 70 18 95 06/18/24 20:52 83 22 151/65 95 06/18/24 18:00 84 20 94 L 06/18/24 17:44 80 06/18/24 17:32 85 06/18/24 17:27 90 20 107/55 91 L 06/18/24 16:49 22 06/18/24 16:44 98 F 87 12 115/66 94 L Intake and Output 06/18/24 06/18/24 06/19/24 14:59 22:59 06:59 Other: # Voids 2 Weight 103.873 kg GENERAL EXAM: Alert, 78-year-old male, comfortable in no apparent distress. HEAD: Normocephalic and atraumatic EYES: Normal reaction of pupils, equal size. NOSE: Clear with pink turbinates. THROAT: No erythema or exudates. NECK: No masses, no JVD. CHEST: No chest wall deformity. Left chest implanted device; right chest accessed Mediport. Remote appearing sternotomy incision. LUNGS: Equal air entry with no crackles, wheeze, rhonchi or dullness. On 2 L/min nasal cannula. No conversational dyspnea or accessory muscle use.. CVS: S1 and S2 normal with no audible murmur, regular rhythm. No extra heart sounds ABDOMEN: No hepatosplenomegaly, active bowel sounds, no guarding or rigidity. SPINE: No scoliosis or deformity SKIN: No rashes CENTRAL NERVOUS SYSTEM: No focal deficits, tone is normal in all 4 extremities. EXTREMITIES: There is no peripheral edema, clubbing, or cyanosis. Peripheral pulses are intact. Results - Laboratory Findings CBC and BMP: 06/18/24 16:51 06/18/24 16:51 PT/INR, D-dimer PT 11.4 sec (10.0-12.5) 06/18/24 16:51 INR 1.0 (<1.2) 06/18/24 16:51 D-Dimer 1.27 mg/L FEU (<0.60) H 06/18/24 16:51 Abnormal lab findings: Abnormal Labs 06/18/24 06/18/24 06/18/24 16:51 16:51 16:51 Hgb 12.7 L Hct 38.3 L Plt Count 96 L D-Dimer 1.27 H Sodium 135 L Potassium 3.4 L BUN 38 H Creatinine 1.42 H Glucose 103 H Magnesium 1.4 L AST 232 H ALT 220 H Troponin I Total Protein 5.7 L Influenza Type A (PCR) 06/18/24 06/18/24 06/19/24 16:51 18:00 01:02 Hgb Hct Plt Count D-Dimer Sodium Potassium BUN Creatinine Glucose Magnesium AST ALT Troponin I 0.478 H* 0.295 H* Total Protein Influenza Type A (PCR) Detected A 06/19/24 04:38 Hgb Hct Plt Count D-Dimer Sodium Potassium BUN Creatinine Glucose Magnesium AST ALT Troponin I 0.239 H* Total Protein Influenza Type A (PCR) - Diagnostic Findings Chest x-ray: image reviewed CT scan - chest: image reviewed Assessment and Plan Assessment: Acute influenza A infection Acute hypoxemic respiratory failure, chest CTA did not show any evidence of pulmonary embolism. There was patchy groundglass opacities and tree-in-bud nodularity bilaterally, concerning for multifocal atypical infectious etiology with bronchiolitis. Suspect acute CHF exacerbation with unknown ejection fraction Elevated troponins, suspect type II IA Acute kidney injury Thrombocytopenia Hypomagnesemia, replaced History of non-Hodgkin's B-cell lymphoma, currently on rituximab History of coronary artery disease with previous CABG History of complete AV block and permanent pacemaker History of hyperlipidemia Hypertension History of hypothyroidism Obesity, with a BMI of 32.9 kg/m Plan: Patient's medications, labs, imaging reviewed Continue supplemental oxygen maintain oxygen saturation 92% or greater Influenza A positive; continue Tamiflu 75 mg twice daily Previously started on empiric antibiotics in the ED; check procalcitonin level Echocardiogram ordered for the morning Resume Lasix 20 mg p.o. daily We will continue to follow I have personally seen and examined the patient, performed the documentation and the assessment and plan as written. Number of minutes spent on the visit:20 This dictation was produced using [employer] dictation software please excuse grammatical errors Time with Patient: Greater than 30
[2024-06-19] MEDS: IPRATROPIUM-ALBUTEROL 3 ML NEB INHALATION STA (07:42)
[2024-06-19] MEDS: IPRATROPIUM-ALBUTEROL 3 ML NEB INHALATION SCH (07:49)
[2024-06-19 08:47] LABS: ALT 280 U/L (4-49); African American GFR (CKD) 75 (>60 ml/min/1.73 sqM); Albumin 3.7 g/dL (3.5-5.0); Anion Gap 13 mmol/L; Blood Urea Nitrogen 35 mg/dL (9-20); Calcium 8.5 mg/dL (8.4-10.2); Carbon Dioxide 20 mmol/L (22-30); Chloride 102 mmol/L (98-107); Glucose 189 mg/dL (74-99); Non-African American GFR(CKD) 65 (>60 ml/min/1.73 sqM); Sodium 135 mmol/L (137-145); Total Bilirubin 0.9 mg/dL (0.2-1.3)
[2024-06-19 08:50] LABS: AST 205 U/L (17-59); Alkaline Phosphatase 67 U/L (38-126); Magnesium 1.9 mg/dL (1.6-2.3); Phosphorus 3.6 mg/dL (2.5-4.5); Potassium 4.6 mmol/L (3.5-5.1)
[2024-06-19] MEDS ORDERED: PANTOPRAZOLE 40 MG/10 ML VIAL IV SCH (09:00)
[2024-06-19] MEDS: ASPIRIN 81 MG PO SCH (09:03)
[2024-06-19] MEDS: PANTOPRAZOLE 40 MG TABLET PO SCH (09:03)
[2024-06-19] MEDS: FUROSEMIDE 20 MG TAB PO SCH (09:03)
[2024-06-19 10:05] LABS: HCT 36.2 % (39.0-53.0); HGB 11.8 gm/dL (13.0-17.5); MCH 29.6 pg (25.0-35.0); MCHC 32.6 g/dL (31.0-37.0); MCV 90.6 fL (80.0-100.0); Mean Platelet Volume 7.8; Platelet Count 93 k/uL (150-450); RDW 13.7 % (11.5-15.5)
[2024-06-19 10:08] LABS: WBC 1.2 k/uL (3.8-10.6)
[2024-06-19] MEDS ORDERED: DOCUSATE 100 MG CAP PO PRN (10:34)
--- NOTE | 2024-06-19 10:42 | P.HPIM ---
History of Present Illness Patient is an 78-year-old male came in with complaints of fatigue generalized weakness and shortness of breath. Patient found to have influenza. Patient had a CT of the chest which did not show any pulm embolism or pneumonia but does have groundglass opacities consistent with pulm edema patient has elevated BNP obtained 13,700 patient had history of CABG and had a previous ejection fraction of 43% does take 20 mg of Lasix oral daily. Patient was also in acute renal failure with creatinine going up to 1.3 patient was given IV fluids which are being discontinued at this time creatinine improved at this time patient does take gabapentin at home. Patient is on 2 L still significantly short of breath. Patient does not use any oxygen at home. Patient was given Rocephin and azithromycin which are being discontinued at this time. REVIEW OF SYSTEMS: All other systems are negative except those mentioned in the HPI PHYSICAL EXAMINATION: GENERAL: The patient is alert and oriented x3, not in any acute distress. Well developed, well nourished. HEENT: Pupils are round and equally reacting to light. EOMI. No scleral icterus. No conjunctival pallor. Normocephalic, atraumatic. No pharyngeal erythema. No thyromegaly. CARDIOVASCULAR: S1 and S2 present. No murmurs, rubs, or gallops. PULMONARY: Chest is clear to auscultation, no wheezing or crackles. ABDOMEN: Soft, nontender, nondistended, normoactive bowel sounds. No palpable organomegaly. MUSCULOSKELETAL: No joint swelling or deformity. EXTREMITIES: No cyanosis, clubbing, or pedal edema. NEUROLOGICAL: Gross neurological examination did not reveal any focal deficits. SKIN: No rashes. Assessment and plan -Influenza A infection: Supportive care Tamiflu will use doxycycline for secondary bacterial bronchitis considering his non-Hodgkin's lymphoma recent c hemotherapy and immunosuppressive state. -Acute hypoxic respiratory failure secondary to congestive heart failure exacerbation as well as influenza IV Lasix as mentioned above -Congestive heart failure chronic systolic as well as diastolic function with mild acute exacerbation IV fluids will be discontinued and patient was started on 40 mg of IV Lasix daily with close monitoring of electrolytes and kidney function -Acute renal failure prerenal azotemia secondary to congestive heart failure IV Lasix as mentioned above -Mild elevation of troponins type II myocardial infarction from his sepsis Leukopenia: Secondary to recent chemotherapy which was 2 weeks ago for non- Hodgkin's lymphoma -Non-Hodgkin's lymphoma received chemotherapy 2 weeks ago -Thrombocytopenia from chemotherapy and non-Hodgkin's lymphoma -Coronary artery disease with CABG in the past -Hyperlipidemia -Hypothyroidism for above-mentioned chronic medical problems patient will be resumed on appropriate home medications DVT prophylaxis: Subcutaneous heparin GI prophylaxis Protonix Past Medical History Past Medical History: Coronary Artery Disease (CAD), Cancer, Diabetes Mellitus, GERD/Reflux, Hyperlipidemia, Hypertension, Thyroid Disorder Additional Past Medical History / Comment(s): b-cell lymphoma. Last chemo 12/01/23. History of Any Multi-Drug Resistant Organisms: None Reported Past Surgical History: Coronary Bypass/CABG, Hernia Repair, Joint Replacement, Orthopedic Surgery, Pacemaker Additional Past Surgical History / Comment(s): right foot surgery, left knee surgery, right shoulder surgery, keesha cataracts Past Anesthesia/Blood Transfusion Reactions: No Reported Reaction Type of Cardiac Device: Permanent Pacemaker Device Placement Date:: unk Smoking Status: Former smoker - Past Family History Father Family Medical History: Cancer Additional Family Medical History / Comment(s): colorectal Medications and Allergies Home Medications Medication Instructions Recorded Confirmed Type Aspirin 81 mg PO DAILY 02/23/14 06/18/24 History Levothyroxine Sodium [Synthroid] 25 mcg PO DIRECTED 02/23/14 06/18/24 History Omeprazole [PriLOSEC] 20 mg PO DAILY 02/23/14 06/18/24 History Atorvastatin [Lipitor] 40 mg PO DIRECTED 06/09/22 06/18/24 History Furosemide [Lasix] 20 mg PO DIRECTED 06/09/22 06/18/24 History Gabapentin 300 mg PO DIRECTED 06/09/22 06/18/24 History metFORMIN HCL 500 mg PO DIRECTED 09/15/22 06/18/24 History Acetaminophen [Tylenol Arthritis] 650 mg PO BID 12/17/23 06/18/24 History Metoprolol Succinate (ER) [Toprol 50 mg PO DIRECTED 12/17/23 06/18/24 History XL] Cholecalciferol (Vitamin D3) 50 mcg PO BID 06/18/24 06/18/24 History [Vitamin D3 (50 Mcg = 2000 Iu)] Docusate [Colace] 100 mg PO HS PRN 06/18/24 06/18/24 History Losartan [Cozaar] 50 mg PO DIRECTED 06/18/24 06/18/24 History valACYclovir HCL [Valtrex] 500 mg PO DIRECTED 06/18/24 06/18/24 History Allergies Allergy/AdvReac Type Severity Reaction Status Date / Time cephalexin monohydrate Allergy Rash/Hives Verified 06/18/24 19:42 [From Keflex] hydrocodone bitartrate Allergy Hallucinati Verified 06/18/24 19:42 [From Lortab] ons sulfamethoxazole Allergy Rash/Hives Verified 06/18/24 19:42 [From Bactrim] trimethoprim [From Bactrim] Allergy Rash/Hives Verified 06/18/24 19:42 mushrooms Allergy Rash/Hives Uncoded 06/18/24 19:42 Physical Exam Vitals: Vital Signs Temp Pulse Resp BP Pulse Ox 06/19/24 08:00 81 06/19/24 07:49 80 95 06/19/24 06:35 98.5 F 69 18 148/72 95 06/19/24 01:35 70 18 95 06/18/24 20:52 83 22 151/65 95 06/18/24 18:00 84 20 94 L 06/18/24 17:44 80 06/18/24 17:32 85 06/18/24 17:27 90 20 107/55 91 L 06/18/24 16:49 22 06/18/24 16:44 98 F 87 12 115/66 94 L Intake and Output 06/18/24 06/19/24 06/19/24 22:59 06:59 14:59 Other: # Voids 2 Weight 103.873 kg Results CBC & Chem 7: 06/19/24 09:20 06/19/24 08:16 Labs: Abnormal Lab Results - Last 24 Hours (Table) 06/18/24 06/18/24 06/18/24 Range/Units 16:51 16:51 16:51 WBC (3.8-10.6) k/uL RBC (4.30-5.90) m/uL Hgb 12.7 L (13.0-17.5) gm/dL Hct 38.3 L (39.0-53.0) % Plt Count 96 L (150-450) k/uL D-Dimer 1.27 H (<0.60) mg/L FEU Sodium 135 L (137-145) mmol/L Potassium 3.4 L (3.5-5.1) mmol/L Carbon Dioxide (22-30) mmol/L BUN 38 H (9-20) mg/dL Creatinine 1.42 H (0.66-1.25) mg/dL Glucose 103 H (74-99) mg/dL Magnesium 1.4 L (1.6-2.3) mg/dL AST 232 H (17-59) U/L ALT 220 H (4-49) U/L Troponin I (0.000-0.034) ng/mL Total Protein 5.7 L (6.3-8.2) g/dL Influenza Type A (PCR) (Not Detectd) 06/18/24 06/18/24 06/19/24 Range/Units 16:51 18:00 01:02 WBC (3.8-10.6) k/uL RBC (4.30-5.90) m/uL Hgb (13.0-17.5) gm/dL Hct (39.0-53.0) % Plt Count (150-450) k/uL D-Dimer (<0.60) mg/L FEU Sodium (137-145) mmol/L Potassium (3.5-5.1) mmol/L Carbon Dioxide (22-30) mmol/L BUN (9-20) mg/dL Creatinine (0.66-1.25) mg/dL Glucose (74-99) mg/dL Magnesium (1.6-2.3) mg/dL AST (17-59) U/L ALT (4-49) U/L Troponin I 0.478 H* 0.295 H* (0.000-0.034) ng/mL Total Protein (6.3-8.2) g/dL Influenza Type A (PCR) Detected A (Not Detectd) 06/19/24 06/19/24 06/19/24 Range/Units 04:38 08:16 09:20 WBC 1.2 L* (3.8-10.6) k/uL RBC 4.00 L (4.30-5.90) m/uL Hgb 11.8 L (13.0-17.5) gm/dL Hct 36.2 L (39.0-53.0) % Plt Count 93 L (150-450) k/uL D-Dimer (<0.60) mg/L FEU Sodium 135 L (137-145) mmol/L Potassium (3.5-5.1) mmol/L Carbon Dioxide 20 L (22-30) mmol/L BUN 35 H (9-20) mg/dL Creatinine (0.66-1.25) mg/dL Glucose 189 H (74-99) mg/dL Magnesium (1.6-2.3) mg/dL AST 205 H (17-59) U/L ALT 280 H (4-49) U/L Troponin I 0.239 H* (0.000-0.034) ng/mL Total Protein 6.0 L (6.3-8.2) g/dL Influenza Type A (PCR) (Not Detectd)
[2024-06-19] MEDS: GABAPENTIN 300 MG CAP PO SCH (10:53)
[2024-06-19] MEDS: LEVOTHYROXINE 25 MCG TAB PO SCH (12:33)
[2024-06-19] MEDS: DOXYCYCLINE 100 MG TABLET PO SCH (12:33)
[2024-06-19] MEDS: FUROSEMIDE 10 MG/ML 2 ML VIAL IV SCH (12:33)
[2024-06-19] MEDS: METOPROLOL SUCCINATE (ER) 50 MG TAB.ER.24H PO SCH (12:33)
[2024-06-19] MEDS: ATORVASTATIN 40 MG TAB PO SCH (20:43)
[2024-06-19] MEDS: GABAPENTIN 100 MG CAP PO SCH (20:43)
[2024-06-19] MEDS: HEPARIN SODIUM,PORCINE 5,000 UNIT/ML 1 ML VIAL SQ SCH (20:44)
[2024-06-19] MEDS ORDERED: AZITHROMYCIN 500 MG in SODIUM CHLORIDE 0.9% 250 ML IVPB SCH (21:00)
[2024-06-20 08:40] LABS: African American GFR (CKD) 79 (>60 ml/min/1.73 sqM); Anion Gap 8 mmol/L; Blood Urea Nitrogen 32 mg/dL (9-20); Calcium 8.6 mg/dL (8.4-10.2); Carbon Dioxide 25 mmol/L (22-30); Chloride 104 mmol/L (98-107); Glucose 129 mg/dL (74-99); Magnesium 1.9 mg/dL (1.6-2.3); Non-African American GFR(CKD) 68 (>60 ml/min/1.73 sqM); Potassium 3.5 mmol/L (3.5-5.1); Sodium 137 mmol/L (137-145)
--- NOTE | 2024-06-20 12:41 | P.PN ---
Subjective Progress Note Date: 06/20/24 Principal diagnosis: Shortness of breath. Patient is a 78-year-old male with past medical history significant for non- Hodgkin's B-cell lymphoma currently on treatment, coronary artery disease with previous CABG, permanent pacemaker, hyperlipidemia, hypertension, hypothyroidism, among other things. Approximately 5 days ago, patient developed URI-like symptoms including runny nose, sore throat, cough. His appetite has been poor. Previous nausea and vomiting. Severe fatigue and generalized weakness. Developed progressively worsening increased work of breathing, went to a local urgent care center yesterday. Noted to be hypoxic, there was a concern for pneumonia, and patient was directed to emergency department. Workup at our facility, including a viral screen positive for influenza A. A chest CTA did not show any evidence of pulmonary embolism. There was patchy groundglass opacities and tree-in-bud nodularity bilaterally, concerning for multifocal atypical infectious etiology with bronchiolitis. Patient was started on Tamiflu 75 mg twice daily. Also, empirically placed on a combination of azithromycin and Rocephin in the ED. Further workup: Included CBC with a WBC count of 3.9, hemoglobin 12.7, platelets 96,000. CMP: Sodium 135, potassium 3.4, chloride 99, serum bicarb 24, BUN 38, creatinine 1.42, glucose 103. Lactic 1.4. AST 232, ALT 220, ALP 74. EKG: Ventricularly paced, rate 88 bpm. Serial troponins were elevated at 0.48, 0.3, and 0.24 respectively. NT proBNP significantly elevated at 13,800. Normal saline infusing at 75 mL/h. Patient currently being evaluated in the emergency department. He is resting comfortably on 2 L/min nasal cannula. No respiratory distress noted. Denies any chest pain, heart palpitations, lightheadedness or syncopal events, orthopnea, or lower extremity edema. Most recent available echocardiogram from May 2022, which demonstrated a mildly reduced left ventricular ejection fraction of 45%. No significant notable valvular abnormalities were reported. Vital signs are stable. Progress note dated June 20, 2024. 78-year-old male seen yesterday in consultation. Please see his note above. The patient has a history of non-Hodgkin's lymphoma, coronary disease, previous bypass, permanent pacemaker, hyperlipidemia, hypertension, and hypothyroidism. The patient presented with flulike symptoms. He did test positive for influenza A. He is currently on 2 L of oxygen. He is not receiving any IV fluids. He was placed on Tamiflu. The patient is seen in room 362. He is feeling better. He is feels less short of breath. Current laboratory data includes a sodium 137, potassium 3.5, chlorides 104, CO2 25, anion gap 8, BUN 32, creatinine 1.05. Glucose 129. Calcium 8.6. Magnesium 1.9. Objective - Vital Signs Vital signs: Vital Signs Temp 97.9 F 06/20/24 09:01 Pulse 84 06/20/24 11:42 Resp 18 06/20/24 09:01 BP 173/77 06/20/24 09:01 Pulse Ox 94 L 06/20/24 09:01 FiO2 Intake & Output 06/19/24 06/20/24 06/20/24 18:59 06:59 18:59 Output Total 700 675 Balance -700 -675 Weight 103.873 kg Output: Urine 700 675 Other: # Voids 2 - Exam No acute distress, oriented 3. Currently on 2 L nasal cannula. HEENT examination is grossly unremarkable. Mucous membranes are moist. No oral lesions. Neck supple. Full range of motion. No adenopathy thyromegaly or neck vein distention. Cardiovascular examination reveals regular rhythm rate. S1-S2 normal. No S3 or S4. No discernible murmur noted. Lungs reveal scattered bilateral rhonchi. No wheezes. No crackles. Breath sounds equal bilaterally. Saturations are in the mid 90s. Abdomen soft bowel sounds are heard. No masses or tenderness. Extremities are intact. No cyanosis clubbing or edema. Skin is without rash or lesion. Neurologic examination is brief but nonfocal. - Labs CBC & Chem 7: 06/19/24 09:20 06/20/24 07:38 Labs: Abnormal Lab Results - Last 24 Hours (Table) 06/20/24 Range/Units 07:38 BUN 32 H (9-20) mg/dL Glucose 129 H (74-99) mg/dL Microbiology - Last 24 Hours (Table) 06/18/24 21:00 Blood Culture Gram Stain - Preliminary Blood Blood Culture - Preliminary Molecular ID Assessment and Plan Assessment: Acute influenza A infection. Acute hypoxemic respiratory failure, chest CTA did not show any evidence of pulmonary embolism. There was patchy groundglass opacities and tree-in-bud nodularity bilaterally, concerning for multifocal atypical infectious etiology with bronchiolitis. Suspect acute CHF exacerbation with unknown ejection fraction. Elevated troponins, suspect type II [place]. Acute kidney injury. Thrombocytopenia. Hypomagnesemia, replaced. History of non-Hodgkin's B-cell lymphoma, currently on rituximab. History of coronary artery disease with previous CABG. History of complete AV block and permanent pacemaker. History of hyperlipidemia. Hypertension. History of hypothyroidism. Obesity, with a BMI of 32.9 kg/m. Plan: Plan dated June 20, 2024. The patient is seen today in room 362. The patient is feeling much better. He is much less short of breath. The patient is currently on 2 L of oxygen. Labs, x-rays, and all medications are reviewed. We will continue to follow with patient, make recommendations along the way. The patient did test positive for influenza. He is not receiving any IV fluids. Overall prognosis remains guarded. He remains a full code. Dictation was produced using [employer] dictation software. Please excuse any grammatical, word or spelling errors. Time with Patient: Less than 30
--- NOTE | 2024-06-21 06:03 | P.PN ---
Subjective Progress Note Date: 06/20/24 Patient is an 78-year-old male came in with complaints of fatigue generalized weakness and shortness of breath. Patient found to have influenza. Patient had a CT of the chest which did not show any pulm embolism or pneumonia but does have groundglass opacities consistent with pulm edema patient has elevated BNP obtained 13,700 patient had history of CABG and had a previous ejection fraction of 43% does take 20 mg of Lasix oral daily. Patient was also in acute renal failure with creatinine going up to 1.3 patient was given IV fluids which are being discontinued at this time creatinine improved at this time patient does take gabapentin at home. Patient is on 2 L still significantly short of breath. Patient does not use any oxygen at home. Patient was given Rocephin and azithromycin which are being discontinued at this time. 06/20/2024 Patient is still requiring oxygen at 2 L reporting shortness of breath. Patient being followed by pulmonary and will continue current regimen. Wean FiO2 as tolerated as patient does not wear oxygen outpatient procalcitonin was elevated at 13.1 and patient is continued on doxycycline along with Tamiflu for influenza. Patient is afebrile with no reported chest pain or palpitations. Review of systems: Constitutional: No reports of fatigue, fever, or chills Cardiovascular: No reports of chest pain or palpitations Respiratory: reports of shortness of breath with exertion, denies cough GI: No reports of nausea, vomiting, or diarrhea : No reports of dysuria or retention Neurovascular: No reports of weakness or numbness All medications have been reviewed PHYSICAL EXAMINATION: GENERAL: The patient is alert and oriented x3, not in any acute distress. Well developed, well nourished. Elderly appearing, obese HEENT: Pupils are round and equally reacting to light. EOMI. No scleral icterus. No conjunctival pallor. Normocephalic, atraumatic. No pharyngeal erythema. No thyromegaly. CARDIOVASCULAR: S1 and S2 present. No murmurs, rubs, or gallops. PULMONARY: Diminished breath sounds bilaterally otherwise chest is clear to auscultation, no wheezing or crackles. ABDOMEN: Soft, nontender, nondistended, normoactive bowel sounds. No palpable organomegaly. MUSCULOSKELETAL: No joint swelling or deformity. EXTREMITIES: No cyanosis, clubbing, or pedal edema. NEUROLOGICAL: Gross neurological examination did not reveal any focal deficits. SKIN: No rashes. Assessment and plan -Influenza A infection: Continue with Tamiflu as well as doxycycline for secondary bacterial bronchitis considering his non-Hodgkin's lymphoma recent chemotherapy and immunosuppressive state. -Acute hypoxic respiratory failure secondary to congestive heart failure exacerbation as well as influenza IV Lasix as mentioned above -Congestive heart failure chronic systolic as well as diastolic function with mild acute exacerbation, continue IV Lasix and repeat labs to monitor kidney functions -Acute renal failure prerenal azotemia secondary to congestive heart failure, IV Lasix as mentioned above -Mild elevation of troponins type II myocardial infarction from his sepsis Leukopenia: Secondary to recent chemotherapy which was 2 weeks ago for non- Hodgkin's lymphoma -Non-Hodgkin's lymphoma received chemotherapy 2 weeks ago -Thrombocytopenia from chemotherapy and non-Hodgkin's lymphoma -Coronary artery disease with CABG in the past -Hyperlipidemia -Hypothyroidism for above-mentioned chronic medical problems patient will be resumed on appropriate home medications -Obesity with a BMI 32.9 DVT prophylaxis: Subcutaneous heparin GI prophylaxis Protonix The impression and plan of care has been dictated by Herlinda Matson, Nurse Practitioner as directed. Dr. Darrell MD I have performed a history and examination and MDM of this patient, discussed the same with the dictator, and agree with the dictator's assessment and plan as written ,documented as a scribe. Based on total visit time, I have performed more than 50% of the visit. Objective - Vital Signs Vital signs: Vital Signs Temp 97.9 F 06/20/24 09:01 Pulse 64 06/20/24 09:01 Resp 18 06/20/24 09:01 BP 173/77 06/20/24 09:01 Pulse Ox 94 L 06/20/24 09:01 FiO2 Intake & Output 06/19/24 06/20/24 06/20/24 18:59 06:59 18:59 Output Total 700 675 Balance -700 -675 Output: Urine 700 675 Other: # Voids 2 - Labs CBC & Chem 7: 06/19/24 09:20 06/20/24 07:38 Labs: Abnormal Lab Results - Last 24 Hours (Table) 06/19/24 06/20/24 Range/Units 08:16 07:38 BUN 32 H (9-20) mg/dL Glucose 129 H (74-99) mg/dL Procalcitonin 13.10 H (0.02-0.50) ng/mL Microbiology - Last 24 Hours (Table) 06/18/24 21:00 Blood Culture Gram Stain - Preliminary Blood Blood Culture - Preliminary Molecular ID
[2024-06-21 08:07] LABS: Basophils % (A) 1 %; Eosinophils % (A) 1 %; HCT 36.3 % (39.0-53.0); HGB 11.5 gm/dL (13.0-17.5); Hypochromasia Marked; Lymphocytes # (A) 0.3 k/uL (1.0-4.8); Lymphocytes % (A) 16 %; MCH 29.9 pg (25.0-35.0); MCHC 31.6 g/dL (31.0-37.0); MCV 94.6 fL (80.0-100.0); Mean Platelet Volume 7.3; Monocytes # (A) 0.2 k/uL (0-1.0); Monocytes % (A) 10 %; Neutrophils # (A) 1.2 k/uL (1.3-7.7); Neutrophils % (A) 69 %; Platelet Count 115 k/uL (150-450); RBC 3.84 m/uL (4.30-5.90); RDW 13.8 % (11.5-15.5); WBC 1.7 k/uL (3.8-10.6)
[2024-06-21 08:27] LABS: Chloride 104 mmol/L (98-107); Glucose 103 mg/dL (74-99); Potassium 3.3 mmol/L (3.5-5.1); Sodium 140 mmol/L (137-145)
[2024-06-21 08:28] LABS: African American GFR (CKD) 81 (>60 ml/min/1.73 sqM); Anion Gap 7 mmol/L; Blood Urea Nitrogen 25 mg/dL (9-20); Calcium 8.5 mg/dL (8.4-10.2); Carbon Dioxide 29 mmol/L (22-30); Magnesium 1.5 mg/dL (1.6-2.3); Non-African American GFR(CKD) 70 (>60 ml/min/1.73 sqM)
[2024-06-21 11:44] LABS: Glucose,Whole Blood 163 mg/dL (70-110)
--- NOTE | 2024-06-21 12:54 | P.PN ---
Subjective Progress Note Date: 06/21/24 Principal diagnosis: Shortness of breath. Patient is a 78-year-old male with past medical history significant for non- Hodgkin's B-cell lymphoma currently on treatment, coronary artery disease with previous CABG, permanent pacemaker, hyperlipidemia, hypertension, hypothyroidism, among other things. Approximately 5 days ago, patient developed URI-like symptoms including runny nose, sore throat, cough. His appetite has been poor. Previous nausea and vomiting. Severe fatigue and generalized weakness. Developed progressively worsening increased work of breathing, went to a local urgent care center yesterday. Noted to be hypoxic, there was a concern for pneumonia, and patient was directed to emergency department. Workup at our facility, including a viral screen positive for influenza A. A chest CTA did not show any evidence of pulmonary embolism. There was patchy groundglass opacities and tree-in-bud nodularity bilaterally, concerning for multifocal atypical infectious etiology with bronchiolitis. Patient was started on Tamiflu 75 mg twice daily. Also, empirically placed on a combination of azithromycin and Rocephin in the ED. Further workup: Included CBC with a WBC count of 3.9, hemoglobin 12.7, platelets 96,000. CMP: Sodium 135, potassium 3.4, chloride 99, serum bicarb 24, BUN 38, creatinine 1.42, glucose 103. Lactic 1.4. AST 232, ALT 220, ALP 74. EKG: Ventricularly paced, rate 88 bpm. Serial troponins were elevated at 0.48, 0.3, and 0.24 respectively. NT proBNP significantly elevated at 13,800. Normal saline infusing at 75 mL/h. Patient currently being evaluated in the emergency department. He is resting comfortably on 2 L/min nasal cannula. No respiratory distress noted. Denies any chest pain, heart palpitations, lightheadedness or syncopal events, orthopnea, or lower extremity edema. Most recent available echocardiogram from May 2022, which demonstrated a mildly reduced left ventricular ejection fraction of 45%. No significant notable valvular abnormalities were reported. Vital signs are stable. Progress note dated June 20, 2024. 78-year-old male seen yesterday in consultation. Please see his note above. The patient has a history of non-Hodgkin's lymphoma, coronary disease, previous bypass, permanent pacemaker, hyperlipidemia, hypertension, and hypothyroidism. The patient presented with flulike symptoms. He did test positive for influenza A. He is currently on 2 L of oxygen. He is not receiving any IV fluids. He was placed on Tamiflu. The patient is seen in room 362. He is feeling better. He is feels less short of breath. Current laboratory data includes a sodium 137, potassium 3.5, chlorides 104, CO2 25, anion gap 8, BUN 32, creatinine 1.05. Glucose 129. Calcium 8.6. Magnesium 1.9. Progress note dated June 21, 2024. 78-year-old male seen today in room 362. The patient is currently on a couple liters of oxygen. He is not receiving any IV fluids. The patient will likely need home oxygen, on discharge. He is feeling better. Laboratory data includes a white count of 1.7, hemoglobin 11.5, hematocrit 36.3, and a platelet count of 115,000. Sodium 140, potassium 3.3, chlorides 104, CO2 29, BUN 25, creatinine 1.02. Glucose is 163. Calcium 8.5, magnesium 1.5. Blood cultures are positive for Staphylococcus epidermidis. Objective - Vital Signs Vital signs: Vital Signs Temp 97.7 F 06/20/24 20:00 Pulse 90 06/21/24 12:22 Resp 18 06/21/24 11:52 BP 124/71 06/21/24 11:52 Pulse Ox 88 L 06/21/24 11:54 FiO2 Intake & Output 06/20/24 06/21/24 06/21/24 18:59 06:59 18:59 Intake Total 240 Output Total 550 Balance -310 Weight 103.873 kg 103.4 kg Intake: Oral 240 Output: Urine 550 Other: # Bowel Movements 1 - Exam No acute distress, oriented 3. Currently on 2 L nasal cannula. HEENT examination is grossly unremarkable. Mucous membranes are moist. No oral lesions. Neck supple. Full range of motion. No adenopathy thyromegaly or neck vein distention. Cardiovascular examination reveals regular rhythm rate. S1-S2 normal. No S3 or S4. No discernible murmur noted. Lungs reveal scattered bilateral rhonchi. No wheezes. No crackles. Breath sounds equal bilaterally. Saturations are in the mid 90s. Abdomen soft bowel sounds are heard. No masses or tenderness. Extremities are intact. No cyanosis clubbing or edema. Skin is without rash or lesion. Neurologic examination is brief but nonfocal. - Labs CBC & Chem 7: 06/21/24 07:07 06/21/24 07:27 Labs: Abnormal Lab Results - Last 24 Hours (Table) 06/21/24 06/21/24 06/21/24 Range/Units 07:07 07:27 11:42 WBC 1.7 L (3.8-10.6) k/uL RBC 3.84 L (4.30-5.90) m/uL Hgb 11.5 L (13.0-17.5) gm/dL Hct 36.3 L (39.0-53.0) % Plt Count 115 L (150-450) k/uL Neutrophils # 1.2 L (1.3-7.7) k/uL Lymphocytes # 0.3 L (1.0-4.8) k/uL Potassium 3.3 L (3.5-5.1) mmol/L BUN 25 H (9-20) mg/dL Glucose 103 H (74-99) mg/dL POC Glucose (mg/dL) 163 H (70-110) mg/dL Magnesium 1.5 L (1.6-2.3) mg/dL Microbiology - Last 24 Hours (Table) 06/18/24 21:00 Blood Culture Gram Stain - Preliminary Blood Blood Culture - Preliminary Staphylococcus epidermidis Molecular ID Assessment and Plan Assessment: Acute influenza A infection. Acute hypoxemic respiratory failure, chest CTA did not show any evidence of pulmonary embolism. There was patchy groundglass opacities and tree-in-bud nodularity bilaterally, concerning for multifocal atypical infectious etiology with bronchiolitis. Suspect acute CHF exacerbation with unknown ejection fraction. Elevated troponins, suspect type II MO. Acute kidney injury. Thrombocytopenia. Hypomagnesemia, replaced. History of non-Hodgkin's B-cell lymphoma, currently on rituximab. History of coronary artery disease with previous CABG. History of complete AV block and permanent pacemaker. History of hyperlipidemia. Hypertension. History of hypothyroidism. Obesity, with a BMI of 32.9 kg/m. Plan: Plan dated June 20, 2024. The patient is seen today in room 362. The patient is feeling much better. He is much less short of breath. The patient is currently on 2 L of oxygen. Labs, x-rays, and all medications are reviewed. We will continue to follow with patient, make recommendations along the way. The patient did test positive for influenza. He is not receiving any IV fluids. Overall prognosis remains guarded. He remains a full code. Dictation was produced using [employer] software. Please excuse any grammatical, word or spelling errors. Plan dated June 21, 2024. 78-year-old male seen today in room 362. He is awake and alert. He is sitting at the bedside, next to his hospital bed. He is wearing oxygen at 2 L. Not receiving any IV fluids. The patient is feeling much better. He was not happy to hear that he likely will be discharged home on oxygen therapy. He desaturated when they walked him around the hallway, while wearing oxygen. Labs, x-rays, and medications are reviewed. We will continue to follow make recommendations along the way. Prognosis is guarded. Dictation was produced using [employer] software. Please excuse any grammatical, word or spelling errors. Time with Patient: Less than 30
[2024-06-21] MEDS ORDERED: Magnesium Replacement Protocol 1 EACH MISC MISCELLANE PRN (14:03)
[2024-06-21] MEDS ORDERED: Potassium Replacement Protocol 1 EACH MISC MISCELLANE PRN (14:03)
[2024-06-21] MEDS: MAGNESIUM SULFATE-D5W PMX 1 GM in DEXTROSE/WATER 1 100ML.BAG IVPB SCH (14:26)
[2024-06-21] MEDS: POTASSIUM CHLORIDE ER 20 MEQ TAB.ER PO SCH (14:26)
[2024-06-21 16:34] LABS: Glucose,Whole Blood 215 mg/dL (70-110)
[2024-06-21] MEDS ORDERED: DEXTROSE 50% SYRINGE 50 ML IVP PRN ×2 (16:36)
[2024-06-21] MEDS: INSULIN LISPRO (HumaLOG) 100 UNIT/ML 10 mL VL SQ SCH (17:01)
[2024-06-21 20:19] LABS: Glucose,Whole Blood 137 mg/dL (70-110)
[2024-06-22 06:13] LABS: Glucose,Whole Blood 135 mg/dL (70-110)
[2024-06-22 08:13] VITALS: RESP 18; TEMP 98.1
[2024-06-22 08:49] LABS: African American GFR (CKD) 86 (>60 ml/min/1.73 sqM); Anion Gap 10 mmol/L; Blood Urea Nitrogen 19 mg/dL (9-20); Calcium 8.9 mg/dL (8.4-10.2); Carbon Dioxide 28 mmol/L (22-30); Chloride 102 mmol/L (98-107); Glucose 148 mg/dL (74-99); Magnesium 1.7 mg/dL (1.6-2.3); Non-African American GFR(CKD) 74 (>60 ml/min/1.73 sqM); Potassium 3.7 mmol/L (3.5-5.1); Sodium 140 mmol/L (137-145)
--- NOTE | 2024-06-22 09:14 | P.PN ---
Subjective Progress Note Date: 06/21/24 Patient is an 78-year-old male came in with complaints of fatigue generalized weakness and shortness of breath. Patient found to have influenza. Patient had a CT of the chest which did not show any pulm embolism or pneumonia but does have groundglass opacities consistent with pulm edema patient has elevated BNP obtained 13,700 patient had history of CABG and had a previous ejection fraction of 43% does take 20 mg of Lasix oral daily. Patient was also in acute renal failure with creatinine going up to 1.3 patient was given IV fluids which are being discontinued at this time creatinine improved at this time patient does take gabapentin at home. Patient is on 2 L still significantly short of breath. Patient does not use any oxygen at home. Patient was given Rocephin and azithromycin which are being discontinued at this time. 06/20/2024 Patient is still requiring oxygen at 2 L reporting shortness of breath. Patient being followed by pulmonary and will continue current regimen. Wean FiO2 as tolerated as patient does not wear oxygen outpatient procalcitonin was elevated at 13.1 and patient is continued on doxycycline along with Tamiflu for influenza. Patient is afebrile with no reported chest pain or palpitations. 06/21/2024 Patient is seen in follow-up today remains on 2 L of oxygen although oxygen saturations are 95%. Encourage patient to increase activity as tolerated with frequent walking around the halls. Patient does not normally wear oxygen at home and will likely require oxygen on discharge. Pulmonary has evaluated the patient and cleared the patient for discharge recommending to continue on doxycycline as well as Tamiflu to complete the course. Patient will need follow-up with oncology as well as pulmonary in the outpatient setting. Review of systems: Constitutional: No reports of fatigue, fever, or chills Cardiovascular: No reports of chest pain or palpitations Respiratory: reports of shortness of breath with exertion, denies cough GI: No reports of nausea, vomiting, or diarrhea : No reports of dysuria or retention Neurovascular: No reports of weakness or numbness All medications have been reviewed PHYSICAL EXAMINATION: GENERAL: The patient is alert and oriented x3, not in any acute distress. Well developed, well nourished. Elderly appearing, obese HEENT: Pupils are round and equally reacting to light. EOMI. No scleral icterus. No conjunctival pallor. Normocephalic, atraumatic. No pharyngeal erythema. No thyromegaly. CARDIOVASCULAR: S1 and S2 present. No murmurs, rubs, or gallops. PULMONARY: Diminished breath sounds bilaterally otherwise chest is clear to auscultation, no wheezing or crackles. ABDOMEN: Soft, nontender, nondistended, normoactive bowel sounds. No palpable organomegaly. MUSCULOSKELETAL: No joint swelling or deformity. EXTREMITIES: No cyanosis, clubbing, or pedal edema. NEUROLOGICAL: Gross neurological examination did not reveal any focal deficits. SKIN: No rashes. Assessment and plan -Influenza A infection with sepsis, present on admission: Continue with Tamiflu as well as doxycycline for secondary bacterial bronchitis considering his non- Hodgkin's lymphoma recent chemotherapy and immunosuppressive state. -Acute hypoxic respiratory failure secondary to congestive heart failure exacerbation as well as influenza IV Lasix as mentioned above -Congestive heart failure chronic systolic as well as diastolic function with mild acute exacerbation, continue IV Lasix and 20 mg orally daily and will resume on discharge -Acute renal failure prerenal azotemia secondary to congestive heart failure, IV Lasix as mentioned above -Mild elevation of troponins type II myocardial infarction from his sepsis Leukopenia: Secondary to recent chemotherapy which was 2 weeks ago for non- Hodgkin's lymphoma -Non-Hodgkin's lymphoma received chemotherapy 2 weeks ago -Thrombocytopenia from chemotherapy and non-Hodgkin's lymphoma -Coronary artery disease with CABG in the past -Hyperlipidemia -Hypothyroidism for above-mentioned chronic medical problems patient will be resumed on appropriate home medications -Obesity with a BMI 32.9 DVT prophylaxis: Subcutaneous heparin GI prophylaxis Protonix Plan: Patient continues on 2 L of oxygen via nasal cannula and has been attempting to wean FiO2 as tolerated. Per nursing staff he desats quickly into the low 80s requiring 2 L and recovers. Patient has been encouraged to increase activity as tolerated with frequent walking and will perform reevaluation with home O2 assessment Case management following and arranging for discharge planning including home oxygen. Patient has been cleared by consultations for discharge home. Patient will follow-up with oncology outpatient Probable discharge planning in 24 hours The impression and plan of care has been dictated by Herlinda Matson, Nurse Practitioner as directed. Dr. Darrell MD I have performed a history and examination and MDM of this patient, discussed the same with the dictator, and agree with the dictator's assessment and plan as written ,documented as a scribe. Based on total visit time, I have performed more than 50% of the visit. Objective - Vital Signs Vital signs: Vital Signs Temp 97.7 F 06/20/24 20:00 Pulse 78 06/21/24 09:06 Resp 18 06/21/24 08:00 BP 148/70 06/21/24 08:00 Pulse Ox 95 06/21/24 08:57 FiO2 Intake & Output 06/20/24 06/21/24 06/21/24 18:59 06:59 18:59 Intake Total 240 Output Total 550 Balance -310 Weight 103.873 kg 103.4 kg Intake: Oral 240 Output: Urine 550 Other: # Bowel Movements 1 - Labs CBC & Chem 7: 06/21/24 07:07 06/22/24 07:51 Labs: Abnormal Lab Results - Last 24 Hours (Table) 06/21/24 06/21/24 Range/Units 07:07 07:27 WBC 1.7 L (3.8-10.6) k/uL RBC 3.84 L (4.30-5.90) m/uL Hgb 11.5 L (13.0-17.5) gm/dL Hct 36.3 L (39.0-53.0) % Plt Count 115 L (150-450) k/uL Neutrophils # 1.2 L (1.3-7.7) k/uL Lymphocytes # 0.3 L (1.0-4.8) k/uL Potassium 3.3 L (3.5-5.1) mmol/L BUN 25 H (9-20) mg/dL Glucose 103 H (74-99) mg/dL Magnesium 1.5 L (1.6-2.3) mg/dL Microbiology - Last 24 Hours (Table) 06/18/24 21:00 Blood Culture Gram Stain - Preliminary Blood Blood Culture - Preliminary Coagulase Negative Staph Molecular ID
--- NOTE | 2024-06-22 11:02 | CA ---
Transthoracic Echo Report Name: Melchor Cho Age: 78 Gender: M : 1945 Exam Date: 06/21/2024 17:49 Exam Location: [facility] Ht (in): 70 Wt (lb): 227 Ordering Physician: Justyn Azevedo Attending/Referring Phys: Cattle Examiner Sruthi Smith RDCS Procedure CPT: Indications: evaluate LV function Cardiac Hx: Technical Quality: Technically difficult study Contrast 1: Definity Total Dose (mL): 5 Contrast 2: Total Dose (mL): MEASUREMENTS (Male / Female) Normal Values 2D ECHO LV Diastolic Diameter PLAX 5.1 cm 4.2 - 5.9 / 3.9 - 5.3 cm LV Systolic Diameter PLAX 4.5 cm IVS Diastolic Thickness 1.1 cm 0.6 - 1.0 / 0.6 - 0.9 cm LVPW Diastolic Thickness 1.0 cm 0.6 - 1.0 / 0.6 - 0.9 cm LV Relative Wall Thickness 0.4 LVOT Diameter 2.3 cm LV Diastolic Volume MOD BP 187.2 cm??? 67 - 155 / 56 - 104 cm??? LV Systolic Volume MOD BP 98.0 cm??? 22 - 58 / 19 - 49 cm??? LV Ejection Fraction MOD BP 47.6 % >= 55 % LV Cardiac Index MOD BP 2301.2 cm???/min???m??? LV Diastolic Volume MOD 4C 181.7 cm??? LV Systolic Volume MOD 4C 95.1 cm??? LV Ejection Fraction MOD 4C 47.7 % LV Cardiac Index MOD 4C 2234.6 cm???/min???m??? LV Diastolic Length 4C 8.4 cm LV Systolic Length 4C 7.7 cm LV Diastolic Volume MOD 2C 186.1 cm??? LV Systolic Volume MOD 2C 96.0 cm??? LV Ejection Fraction MOD 2C 48.4 % LV Cardiac Index MOD 2C 2325.5 cm???/min???m??? LV Diastolic Length 2C 8.7 cm LV Systolic Length 2C 8.1 cm LA Volume 88.1 cm??? 18 - 58 / 22 - 52 cm??? LA Volume Index 38.5 cm???/m??? 16 - 28 cm???/m??? DOPPLER AV Peak Velocity 119.4 cm/s AV Peak Gradient 5.7 mmHg AV Mean Velocity 79.4 cm/s AV Mean Gradient 3.0 mmHg AV Velocity Time Integral 20.6 cm LVOT Peak Velocity 87.5 cm/s LVOT Peak Gradient 3.1 mmHg LVOT Velocity Time Integral 15.4 cm LVOT Stroke Volume 61.3 cm??? LVOT Stroke Volume Index 27.8 ml/m??? LVOT Cardiac Index 1582.1 cm???/min???m??? AV Area Cont Eq vti 3.0 cm??? AV Area Cont Eq pk 2.9 cm??? MV Area PHT 6.5 cm??? Mitral E Point Velocity 72.0 cm/s Mitral A Point Velocity 35.0 cm/s Mitral E to A Ratio 2.1 MV Deceleration Time 117.1 ms FINDINGS Left Ventricle Left ventricular ejection fraction is estimated at 35-40 %. Anteroapical and anteroseptal severe hypokinesis.left ventricular cavity size normal. Right Ventricle Right ventricle not well visualized. Unable to estimate the right ventricular systolic pressure. Right Atrium Right atrial dilatation. Left Atrium Moderately increased left atrial volume. Mildly increased left atrial area. Mitral Valve Structurally normal mitral valve. No evidence for mitral valve prolapse. No mitral stenosis. Mild mitral regurgitation.mitral annular calcification. Aortic Valve Aortic valve not well visualized. No aortic valve stenosis or regurgitation. Tricuspid Valve Structurally normal tricuspid valve. No tricuspid stenosis. Mild tricuspid regurgitation. Pulmonic Valve Pulmonic valve not well visualized. Pericardium No pericardial effusion. Aorta Aortic annulus normal. Ascending aorta not well visualized. CONCLUSIONS Technically difficult study. Definity ECHO contrast used for improved visualization of the endocardial borders (inadequate visualization of two or more contiguous segments). Severe impairment of the left ventricular systolic function with segmental wall motion abnormality Mild mitral and tricuspid regurgitation Previewed by: Dr. Clyde Aguilera MD (Electronically Signed) Final Date: 22 June 2024 11:01
[2024-06-22 11:42] LABS: Glucose,Whole Blood 176 mg/dL (70-110)
[2024-06-22 11:51] VITALS: BP 129/66
--- NOTE | 2024-06-22 13:54 | P.PN ---
Subjective Progress Note Date: 06/22/24 Principal diagnosis: Shortness of breath. Patient is a 78-year-old male with past medical history significant for non- Hodgkin's B-cell lymphoma currently on treatment, coronary artery disease with previous CABG, permanent pacemaker, hyperlipidemia, hypertension, hypothyroidism, among other things. Approximately 5 days ago, patient developed URI-like symptoms including runny nose, sore throat, cough. His appetite has been poor. Previous nausea and vomiting. Severe fatigue and generalized weakness. Developed progressively worsening increased work of breathing, went to a local urgent care center yesterday. Noted to be hypoxic, there was a concern for pneumonia, and patient was directed to emergency department. Workup at our facility, including a viral screen positive for influenza A. A chest CTA did not show any evidence of pulmonary embolism. There was patchy groundglass opacities and tree-in-bud nodularity bilaterally, concerning for multifocal atypical infectious etiology with bronchiolitis. Patient was started on Tamiflu 75 mg twice daily. Also, empirically placed on a combination of azithromycin and Rocephin in the ED. Further workup: Included CBC with a WBC count of 3.9, hemoglobin 12.7, platelets 96,000. CMP: Sodium 135, potassium 3.4, chloride 99, serum bicarb 24, BUN 38, creatinine 1.42, glucose 103. Lactic 1.4. AST 232, ALT 220, ALP 74. EKG: Ventricularly paced, rate 88 bpm. Serial troponins were elevated at 0.48, 0.3, and 0.24 respectively. NT proBNP significantly elevated at 13,800. Normal saline infusing at 75 mL/h. Patient currently being evaluated in the emergency department. He is resting comfortably on 2 L/min nasal cannula. No respiratory distress noted. Denies any chest pain, heart palpitations, lightheadedness or syncopal events, orthopnea, or lower extremity edema. Most recent available echocardiogram from May 2022, which demonstrated a mildly reduced left ventricular ejection fraction of 45%. No significant notable valvular abnormalities were reported. Vital signs are stable. Progress note dated June 20, 2024. 78-year-old male seen yesterday in consultation. Please see his note above. The patient has a history of non-Hodgkin's lymphoma, coronary disease, previous bypass, permanent pacemaker, hyperlipidemia, hypertension, and hypothyroidism. The patient presented with flulike symptoms. He did test positive for influenza A. He is currently on 2 L of oxygen. He is not receiving any IV fluids. He was placed on Tamiflu. The patient is seen in room 362. He is feeling better. He is feels less short of breath. Current laboratory data includes a sodium 137, potassium 3.5, chlorides 104, CO2 25, anion gap 8, BUN 32, creatinine 1.05. Glucose 129. Calcium 8.6. Magnesium 1.9. Progress note dated June 21, 2024. 78-year-old male seen today in room 362. The patient is currently on a couple liters of oxygen. He is not receiving any IV fluids. The patient will likely need home oxygen, on discharge. He is feeling better. Laboratory data includes a white count of 1.7, hemoglobin 11.5, hematocrit 36.3, and a platelet count of 115,000. Sodium 140, potassium 3.3, chlorides 104, CO2 29, BUN 25, creatinine 1.02. Glucose is 163. Calcium 8.5, magnesium 1.5. Blood cultures are positive for Staphylococcus epidermidis. Progress note dated June 22, 2024. 78-year-old male seen again in room 362. Currently, the patient is on nasal O2 2 L. Is not receiving any IV fluids. He is sitting in a chair next to his hospital bed. His is in the room. He is feeling much better, and hoping to be discharged soon. Current laboratory data includes a sodium 140, potassium 3.7, chlorides 102, CO2 28, anion gap 10, BUN 19, and creatinine 0.98. Glucose is 176. Calcium 8.9, magnesium 1.7. Objective - Vital Signs Vital signs: Vital Signs Temp 98.1 F 06/22/24 11:50 Pulse 88 06/22/24 11:58 Resp 18 06/22/24 11:50 BP 129/66 06/22/24 11:50 Pulse Ox 94 L 06/22/24 11:50 FiO2 Intake & Output 06/21/24 06/22/24 06/22/24 18:59 06:59 18:59 Intake Total 240 480 Output Total 700 700 Balance -700 -460 480 Weight 102.8 kg Intake: Oral 240 480 Output: Urine 700 700 Other: # Voids 1 - Exam No acute distress, oriented 3. Currently on 2 L nasal cannula. HEENT examination is grossly unremarkable. Mucous membranes are moist. No oral lesions. Neck supple. Full range of motion. No adenopathy thyromegaly or neck vein distention. Cardiovascular examination reveals regular rhythm rate. S1-S2 normal. No S3 or S4. No discernible murmur noted. Lungs reveal scattered bilateral rhonchi. No wheezes. No crackles. Breath sounds equal bilaterally. Saturations are in the mid 90s. Abdomen soft bowel sounds are heard. No masses or tenderness. Extremities are intact. No cyanosis clubbing or edema. Skin is without rash or lesion. Neurologic examination is brief but nonfocal. - Labs CBC & Chem 7: 06/21/24 07:07 06/22/24 07:51 Labs: Abnormal Lab Results - Last 24 Hours (Table) 06/21/24 06/21/24 06/22/24 Range/Units 16:32 20:18 06:11 Glucose (74-99) mg/dL POC Glucose (mg/dL) 215 H 137 H 135 H (70-110) mg/dL 06/22/24 06/22/24 Range/Units 07:51 11:40 Glucose 148 H (74-99) mg/dL POC Glucose (mg/dL) 176 H (70-110) mg/dL Microbiology - Last 24 Hours (Table) 06/21/24 07:07 Blood Culture - Preliminary Blood 06/18/24 21:00 Blood Culture Gram Stain - Final Blood Blood Culture - Final Staphylococcus epidermidis Molecular ID Assessment and Plan Assessment: Acute influenza A infection. Acute hypoxemic respiratory failure, chest CTA did not show any evidence of pulmonary embolism. There was patchy groundglass opacities and tree-in-bud nodularity bilaterally, concerning for multifocal atypical infectious etiology with bronchiolitis. Suspect acute CHF exacerbation with unknown ejection fraction. Elevated troponins, suspect type II [place]. Acute kidney injury. Thrombocytopenia. Hypomagnesemia, replaced. History of non-Hodgkin's B-cell lymphoma, currently on rituximab. History of coronary artery disease with previous CABG. History of complete AV block and permanent pacemaker. History of hyperlipidemia. Hypertension. History of hypothyroidism. Obesity, with a BMI of 32.9 kg/m. Plan: Plan dated June 20, 2024. The patient is seen today in room 362. The patient is feeling much better. He is much less short of breath. The patient is currently on 2 L of oxygen. Labs, x-rays, and all medications are reviewed. We will continue to follow with patient, make recommendations along the way. The patient did test positive for influenza. He is not receiving any IV fluids. Overall prognosis remains guarded. He remains a full code. Dictation was produced using [employer] software. Please excuse any grammatical, word or spelling errors. Plan dated June 21, 2024. 78-year-old male seen today in room 362. He is awake and alert. He is sitting at the bedside, next to his hospital bed. He is wearing oxygen at 2 L. Not receiving any IV fluids. The patient is feeling much better. He was not happy to hear that he likely will be discharged home on oxygen therapy. He desaturated when they walked him around the hallway, while wearing oxygen. Labs, x-rays, and medications are reviewed. We will continue to follow make recommendations along the way. Prognosis is guarded. Dictation was produced using [employer] software. Please excuse any grammatical, word or spelling errors. Plan dated June 22, 2024. The patient is seen today in room 362. He is on 2 L of oxygen. He is sitting in a chair next to his hospital bed. He is feeling much better. He is hoping to be discharged soon. Labs, x-rays, medications are reviewed. We will continue to follow the patient, make recommendations along the way. Clinically, the patient is doing much better, and his pulmonary status is stable. He will likely be discharged home on oxygen. He will follow-up with me in the office. I told him he may be on oxygen just for a few days, or for a couple of weeks. Prognosis is guarded. Dictation was produced using [employer] software. Please excuse any grammatical, word or spelling errors. Time with Patient: Less than 30
[2024-06-22 14:20] VITALS: PULSE 89
--- NOTE | 2024-06-25 00:25 | P.DS ---
Providers Date of admission: 06/18/24 20:18 Attending physician: Geraldine Griffith Consults: 06/18/24 20:18 Consult Physician Routine Consulting Provider: Hosea Jones Consult Reason/Comments: flu Do you want consulting provider notified?: Yes Primary care physician: Akira Farrell MD Hospital Course: Final Diagnosis Assessment and plan -Influenza A infection with sepsis, present on admission: Continue with Tamiflu as well as doxycycline for secondary bacterial bronchitis considering his non- Hodgkin's lymphoma recent chemotherapy and immunosuppressive state. -Acute hypoxic respiratory failure secondary to congestive heart failure exacerbation as well as influenza IV Lasix as mentioned above -Congestive heart failure chronic systolic as well as diastolic function with mild acute exacerbation -Acute renal failure prerenal azotemia secondary to congestive heart failure, IV Lasix as mentioned above -Mild elevation of troponins type II myocardial infarction from his sepsis Leukopenia: Secondary to recent chemotherapy which was 2 weeks ago for non- Hodgkin's lymphoma -Non-Hodgkin's lymphoma received chemotherapy 2 weeks ago -Thrombocytopenia from chemotherapy and non-Hodgkin's lymphoma -Coronary artery disease with CABG in the past -Hyperlipidemia -Hypothyroidism for above-mentioned chronic medical problems patient will be resumed on appropriate home medications -Obesity with a BMI 32.9 Discharge Disposition Patient stable for discharge home. Patient will continue on 2 L of oxygen via nasal cannula. Patient will continue with oral doxycycline for 7 more days to complete a 10-day course. Patient will continue with oral Tamiflu 75 mg twice daily. Patient to continue all other same home medications. Losartan was discontinued on discharge as patient blood pressure has been running low. Patient to follow-up with his PCP Dr. Akira Churchill in 1 to 2 days and also financial aid counselor Dr. Haque 1 week. Hospital Course Patient is an 78-year-old male came in with complaints of fatigue generalized weakness and shortness of breath. Patient found to have influenza. Patient had a CT of the chest which did not show any pulm embolism or pneumonia but does have groundglass opacities consistent with pulm edema patient has elevated BNP obtained 13,700. Patient had history of non-Hodgkin's lymphoma with recent chemotherapy, CABG and had a previous ejection fraction of 43%, does take 20 mg of Lasix oral daily. Patient was also in acute renal failure with creatinine going up to 1.3 patient was given IV fluids. Patient is on 2 L still significantly short of breath. Patient does not use any oxygen at home. Patient was admitted to the hospital with a consult placed to pulmonary services. Patient was found to have a procalcitonin level of 14.1 and was started on oral doxycycline as well as Tamiflu for the acute influenza infection. Patient was found to have a mild acute exacerbation of congestive heart failure which required IV Lasix and IV fluids were discontinued. Patient also was treated with IV steroids. Patient was able to increase activity level was ambulating in the hallways. Patient would like to discharge home and will require 2 days of oxygen via nasal cannula on discharge. Patient did have a positive blood culture for Staphylococcus epidermidis which was felt to be contaminant species and his repeat blood culture has been negative. His blood work on discharge reveals a white blood cell count of 1.7, hemoglobin 11.5, sodium 140, potassium 3.7, BUN of 19 creatinine 0.98 magnesium of 1.7. Please see medication reconciliation for a list of current medications. Thank you for allowing us to participate in the care of this patient. The impression and plan of care has been dictated by Olga Seymour, Nurse Practitioner as directed. Dr. Darrell MD I have performed a history and physical examination and medical decision making of this patient, discussed the same with the dictator, and agree with the dictators assessment and plan as written, documented as a scribe. Based on total visit time, I have performed more than 50% of this visit. Plan - Discharge Summary Discharge Rx Participant: No New Discharge Prescriptions: New Albuterol Inhaler [Ventolin Hfa Inhaler] 2 puff INHALATION Q6H PRN #1 each PRN Reason: Shortness Of Breath Doxycycline 100 mg PO BID 7 Days #14 tab Oseltamivir [Tamiflu] 75 mg PO Q12HR 2 Days #4 cap Continue Omeprazole [PriLOSEC] 20 mg PO DAILY Levothyroxine Sodium [Synthroid] 25 mcg PO DAILY Aspirin 81 mg PO DAILY Furosemide [Lasix] 20 mg PO DAILY metFORMIN HCL 500 mg PO BID Acetaminophen [Tylenol Arthritis] 650 mg PO BID Docusate [Colace] 100 mg PO HS PRN PRN Reason: Constipation Cholecalciferol (Vitamin D3) [Vitamin D3 (50 Mcg = 2000 Iu)] 50 mcg PO BID Atorvastatin [Lipitor] 40 mg PO HS Gabapentin 300 mg PO HS Metoprolol Succinate (ER) [Toprol XL] 50 mg PO DAILY valACYclovir HCL [Valtrex] 500 mg PO BID PRN PRN Reason: first sign of virus Discontinued Losartan [Cozaar] 50 mg PO DAILY Discharge Medication List Aspirin 81 mg PO DAILY 02/23/14 [History] Levothyroxine Sodium [Synthroid] 25 mcg PO DAILY 02/23/14 [History] Omeprazole [PriLOSEC] 20 mg PO DAILY 02/23/14 [History] Atorvastatin [Lipitor] 40 mg PO HS 06/09/22 [History] Furosemide [Lasix] 20 mg PO DAILY 06/09/22 [History] Gabapentin 300 mg PO HS 06/09/22 [History] metFORMIN HCL 500 mg PO BID 09/15/22 [History] Acetaminophen [Tylenol Arthritis] 650 mg PO BID 12/17/23 [History] Metoprolol Succinate (ER) [Toprol XL] 50 mg PO DAILY 12/17/23 [History] Cholecalciferol (Vitamin D3) [Vitamin D3 (50 Mcg = 2000 Iu)] 50 mcg PO BID 06/18/24 [History] Docusate [Colace] 100 mg PO HS PRN 06/18/24 [History] valACYclovir HCL [Valtrex] 500 mg PO BID PRN 06/18/24 [History] Albuterol Inhaler [Ventolin Hfa Inhaler] 2 puff INHALATION Q6H PRN #1 each 10/11 [Rx] Doxycycline 100 mg PO BID 7 Days #14 tab 06/22/24 [Rx] Oseltamivir [Tamiflu] 75 mg PO Q12HR 2 Days #4 cap 06/22/24 [Rx] Follow up Appointment(s)/Referral(s): Hosea Jones MD [STAFF PHYSICIAN] - 1 Week (Appt 07/06/24 3:00pm) Akira Farrell MD [Primary Care Provider] - 1-2 days Cyrus Mello MD [STAFF PHYSICIAN] - 1 Week (Decreased Ejection fraction on echocardiogram Appt 07/06/24 3:00pm) Activity/Diet/Wound Care/Special Instructions: Continue oral doxycycline for 7 more days to complete a 10 day course Continue oral tamiflu for 2 more days Continue oxygen support at 2L nasal cannula Follow up with your pot fluxer on discharge Discharge Disposition: HOME SELF-CARE
== END 2024-06-22 16:46 | disposition home or self-care (01) | DRG 193 ==
LOC: EC 16:43 → 3SCARD 20:18
PROVIDERS: ADMIT Hospitalist; ATTEND Hospitalist
DX: J10.1 Influenza due to other identified influenza virus with other respiratory manifestations (principal); A41.9 Sepsis, unspecified organism; J96.01 Acute respiratory failure with hypoxia; I50.23 Acute on chronic systolic (congestive) heart failure; I21.A1 Myocardial infarction type 2; I44.2 Atrioventricular block, complete; D70.1 Agranulocytosis secondary to cancer chemotherapy; C85.90 Non-Hodgkin lymphoma, unspecified, unspecified site; J44.1 Chronic obstructive pulmonary disease with (acute) exacerbation; I11.0 Hypertensive heart disease with heart failure; E11.9 Type 2 diabetes mellitus without complications; E66.9 Obesity, unspecified; E03.9 Hypothyroidism, unspecified; D69.59 Other secondary thrombocytopenia; J44.0 Chronic obstructive pulmonary disease with (acute) lower respiratory infection; N17.9 Acute kidney failure, unspecified; J21.9 Acute bronchiolitis, unspecified; I25.10 Atherosclerotic heart disease of native coronary artery without angina pectoris; T45.1X5A Adverse effect of antineoplastic and immunosuppressive drugs, initial encounter; E78.5 Hyperlipidemia, unspecified; E83.42 Hypomagnesemia; Z96.60 Presence of unspecified orthopedic joint implant; Z68.32 Body mass index [BMI] 32.0-32.9, adult; Z79.82 Long term (current) use of aspirin; Z79.890 Hormone replacement therapy; Z79.84 Long term (current) use of oral hypoglycemic drugs; Z95.1 Presence of aortocoronary bypass graft; Z87.891 Personal history of nicotine dependence; Z95.0 Presence of cardiac pacemaker
CPT/HCPCS: 36415; 71046; 71275; 80048; 80053; 83605; 83735; 83880; 84100; 84145; 84484; 85025; 85379; 85610; 85730; 87040; 87077; 87186; 87636; 93005; 93306; 94640; 94760; 96361; 96365; 96366; 96367; 96375; 99291

== ENCOUNTER → 2024-08-14 | Day surgery (SDC) | payer MEDICARE ==
[~2024-08-14] MED LIST changes: -LIDOCAINE 1% INJ 10MG/ML (20 ML MDV) ONE; -NALOXONE 0.4 MG/ML 1 ML VIAL IV PRN; -PHENYLEPHRINE-0.9% NACL SYG 1,000 MCG/10 ML SYRINGE ONE; -fentaNYL (PF) 50 MCG/ML 2 ML AMP IV PRN; -fentaNYL (PF) 50 MCG/ML 2 ML AMP ONE
[2024-08-14] MEDS: IV FLUID CONTINUATION 1,000 ML IV ONE (08:41)
[2024-08-14] MEDS: LACTATED RINGERS 1,000 ML IV SCH (08:58)
[2024-08-14 09:01] VITALS: TEMP 98
[2024-08-14] MEDS: LACTATED RINGERS 1,000 ML IV ONE ×2 (09:01→09:38)
[2024-08-14 09:06] LABS: Glucose,Whole Blood 96 mg/dL (70-110)
--- NOTE | 2024-08-14 09:13 | P.GSHP ---
History of Present Illness H&P Date: 08/14/24 Chief Complaint: Change in bowel habits 79-year-old male here for colonoscopy. Last colonoscopy 5 years ago. Thinks he had a polyp. Family history of colon cancer in his father. Patient has had persistent diarrhea up to 10 times per day for the last 1 month or so. Denies rectal bleeding. On chemotherapy for lymphoma. Past Medical History Past Medical History: Coronary Artery Disease (CAD), Cancer, COPD, Diabetes Mellitus, GERD/Reflux, Hearing Disorder / Deafness, Hyperlipidemia, Hypertension, Pneumonia, Thyroid Disorder Additional Past Medical History / Comment(s): b-cell lymphoma. last chemo 08/08. Hospitalization @[facility] June 2024 for influenza A & pneumonia. chronic diarrhea. keesha hearing aids. History of Any Multi-Drug Resistant Organisms: None Reported Past Surgical History: Coronary Bypass/CABG, Hernia Repair, Joint Replacement, Orthopedic Surgery, Pacemaker Additional Past Surgical History / Comment(s): right foot surgery, left knee surgery, right shoulder surgery, keesha cataracts, triple CABG 3 yrs ago, chemo port right side chest Past Anesthesia/Blood Transfusion Reactions: No Reported Reaction Type of Cardiac Device: Permanent Pacemaker Device Placement Date:: about one year ago Smoking Status: Former smoker - Past Family History Father Family Medical History: Cancer Additional Family Medical History / Comment(s): colorectal Medications and Allergies Home Medications Medication Instructions Recorded Confirmed Type Aspirin 81 mg PO DAILY 02/23/14 08/09/24 History Levothyroxine Sodium [Synthroid] 25 mcg PO DAILY 02/23/14 08/14/24 History Omeprazole [PriLOSEC] 20 mg PO DAILY 02/23/14 08/14/24 History Atorvastatin [Lipitor] 40 mg PO HS 06/09/22 08/14/24 History Furosemide [Lasix] 20 mg PO DAILY 06/09/22 08/14/24 History Gabapentin 300 mg PO HS 06/09/22 08/14/24 History metFORMIN HCL 500 mg PO BID 09/15/22 08/14/24 History Acetaminophen [Tylenol Arthritis] 650 mg PO BID 12/17/23 08/14/24 History Metoprolol Succinate (ER) [Toprol 50 mg PO DAILY 12/17/23 08/14/24 History XL] Cholecalciferol (Vitamin D3) 50 mcg PO BID 06/18/24 08/14/24 History [Vitamin D3 (50 Mcg = 2000 Iu)] valACYclovir HCL [Valtrex] 500 mg PO BID PRN 06/18/24 08/14/24 History Albuterol Inhaler [Ventolin Hfa 2 puff INHALATION Q6H PRN #1 each 06/22/24 08/14/24 Rx Inhaler] Ipratropium Peak 0.06%Nasal 2 spray EA NOSTRIL BID PRN 08/09/24 08/14/24 History [Atrovent Nasal 0.06%] Allergies Allergy/AdvReac Type Severity Reaction Status Date / Time cephalexin monohydrate Allergy Rash/Hives Verified 08/14/24 08:31 [From Keflex] hydrocodone bitartrate Allergy Hallucinati Verified 08/14/24 08:31 [From Lortab] ons sulfamethoxazole Allergy Rash/Hives Verified 08/14/24 08:31 [From Bactrim] trimethoprim [From Bactrim] Allergy Rash/Hives Verified 08/14/24 08:31 mushrooms Allergy Rash/Hives Uncoded 08/14/24 08:31 Surgical - Exam Vital Signs Temp Pulse Resp BP Pulse Ox 98.0 F 88 18 121/77 97 08/14/24 08:41 08/14/24 08:41 08/14/24 08:41 08/14/24 08:41 08/14/24 08:41 Physical exam: General: Well-developed, well-nourished HEENT: Normocephalic, sclerae nonicteric Abdomen: Nontender, nondistended Extremities: No edema Neuro: Alert and oriented Assessment and Plan (1) Change in bowel habits Narrative/Plan: Will proceed with colonoscopy at this time. Current Visit: Yes Status: Acute Code(s): R19.4 - CHANGE IN BOWEL HABIT SNOMED Code(s): 44236677
--- NOTE | 2024-08-14 09:44 | P.PCN ---
Date of Procedure: 08/14/24 Procedure(s) Performed: PREOPERATIVE DIAGNOSIS: Change in bowel habits with chronic diarrhea POSTOPERATIVE DIAGNOSIS: Ascending colon mass, diverticulosis PROCEDURE: Colonoscopy with biopsy ANESTHESIA: MAC SURGEON: Solomon Cramer M.D. SPECIMENS: Mass ENDOSCOPIC PROCEDURE: The patient was placed on the endoscopy table in the left decubitus position. The Olympus colonoscope was inserted into the anus and passed under direct visualization to the proximal ascending colon. Adjacent to the cecum there was noted to be a ulcerated mass measuring about 3 x 4 cm. This was biopsied. The base of the cecum appeared normal. I could not visualize well the ileocecal valve itself and it was unclear whether the mass was involving the valve itself. The remainder of the ascending transverse descending sigmoid and rectum was normal with the exception of scattered diverticular change. Digital rectal examination was normal. The patient was taken to the recovery room in stable condition per anesthesia guidelines. RECOMMENDATIONS: Await biopsy results. Follow-up 1 week.
[2024-08-14 09:57] VITALS: BP 148/79; PULSE 67; RESP 16
== END ==
LOC: ORWHC2ENDO 08:14
PROVIDERS: ATTEND Surgery
DX: K63.3 Ulcer of intestine (principal); Z80.0 Family history of malignant neoplasm of digestive organs; K57.30 Diverticulosis of large intestine without perforation or abscess without bleeding; I25.10 Atherosclerotic heart disease of native coronary artery without angina pectoris; J44.9 Chronic obstructive pulmonary disease, unspecified; E11.9 Type 2 diabetes mellitus without complications; E78.5 Hyperlipidemia, unspecified; I10 Essential (primary) hypertension; Z95.1 Presence of aortocoronary bypass graft; Z95.0 Presence of cardiac pacemaker; Z87.891 Personal history of nicotine dependence; Z79.890 Hormone replacement therapy; Z79.84 Long term (current) use of oral hypoglycemic drugs; Z88.1 Allergy status to other antibiotic agents; Z88.2 Allergy status to sulfonamides; Z88.5 Allergy status to narcotic agent
CPT/HCPCS: 45380; J2704; 88305

== ENCOUNTER 2024-09-28 11:43 | Day surgery (SDC) | payer MEDICARE ==
[2024-09-27 10:00] VITALS: BMI 31.5
[2024-09-28] MEDS: IV FLUID CONTINUATION 1,000 ML IV ONE (12:13)
[2024-09-28] MEDS: LACTATED RINGERS 1,000 ML IV SCH (12:13)
[2024-09-28 12:25] LABS: Glucose,Whole Blood 113 mg/dL (70-110)
[2024-09-28 12:34] VITALS: TEMP 97.8
[2024-09-28] MEDS ORDERED: PROPOFOL 10 MG/ML 20 ML VIAL IV ONE (13:11)
--- NOTE | 2024-09-28 13:24 | P.GSHP ---
History of Present Illness H&P Date: 09/28/24 Chief Complaint: Colon mass 79-year-old male known to our service. Underwent colonoscopy in July showing a ascending colon lesion. Patient with history of lymphoma recently completed chemotherapy. Symptoms of diarrhea have improved. Biopsies from the colon mass were benign. Recent PET scan negative. Past Medical History Past Medical History: Coronary Artery Disease (CAD), Cancer, COPD, Diabetes Mellitus, GERD/Reflux, Hearing Disorder / Deafness, Hyperlipidemia, Hypertension, Myocardial Infarction ([place]), Pneumonia, Thyroid Disorder Additional Past Medical History / Comment(s): b-cell lymphoma. last chemo 08/08/24. Hospitalization @[facility] June 2024 for influenza A & pneumonia. chronic diarrhea. keesha hearing aids. Last Myocardial Infarction Date:: 03/26/22 History of Any Multi-Drug Resistant Organisms: None Reported Past Surgical History: Coronary Bypass/CABG, Hernia Repair, Joint Replacement, Orthopedic Surgery, Pacemaker Additional Past Surgical History / Comment(s): right foot surgery, left knee surgery, right shoulder surgery, keesha cataracts, triple CABG 03/27/22, chemo port right side chest, COLONOSCOPY-WITH 6 BIOPSIES OF CYST FOUND IN COLON-BENIGN, RT ANKLE CADAVER BONE WITH FUSION, Past Anesthesia/Blood Transfusion Reactions: No Reported Reaction Type of Cardiac Device: Permanent Pacemaker Device Placement Date:: 06/10/22 Smoking Status: Former smoker - Past Family History Father Family Medical History: Cancer Additional Family Medical History / Comment(s): colorectal Medications and Allergies Home Medications Medication Instructions Recorded Confirmed Type Aspirin 81 mg PO DAILY 02/23/14 09/27/24 History Levothyroxine Sodium [Synthroid] 25 mcg PO DAILY 02/23/14 09/28/24 History Omeprazole [PriLOSEC] 20 mg PO DAILY 02/23/14 09/28/24 History Atorvastatin [Lipitor] 40 mg PO HS 06/09/22 09/27/24 History Furosemide [Lasix] 20 mg PO DAILY 06/09/22 09/28/24 History Gabapentin 300 mg PO HS 06/09/22 09/28/24 History metFORMIN HCL 500 mg PO BID 09/15/22 09/28/24 History Acetaminophen [Tylenol Arthritis] 650 mg PO BID 12/17/23 09/27/24 History Metoprolol Succinate (ER) [Toprol 50 mg PO DAILY 12/17/23 09/28/24 History XL] Cholecalciferol (Vitamin D3) 50 mcg PO BID 06/18/24 09/27/24 History [Vitamin D3 (50 Mcg = 2000 Iu)] valACYclovir HCL [Valtrex] 500 mg PO BID PRN 06/18/24 09/27/24 History Docusate [Colace] 100 mg PO DAILY 09/27/24 09/27/24 History Losartan [Cozaar] 50 mg PO DAILY 09/27/24 09/28/24 History Allergies Allergy/AdvReac Type Severity Reaction Status Date / Time cephalexin monohydrate Allergy Rash/Hives Verified 09/28/24 12:11 [From Keflex] hydrocodone bitartrate Allergy Hallucinati Verified 09/28/24 12:11 [From Lortab] ons sulfamethoxazole Allergy Rash/Hives Verified 09/28/24 12:11 [From Bactrim] trimethoprim [From Bactrim] Allergy Rash/Hives Verified 09/28/24 12:11 mushrooms Allergy Rash/Hives Uncoded 09/28/24 12:11 Surgical - Exam Vital Signs Temp Pulse Resp BP Pulse Ox 97.8 F 89 18 134/62 97 09/28/24 12:13 09/28/24 12:13 09/28/24 12:13 09/28/24 12:13 09/28/24 12:13 Physical exam: General: Well-developed, well-nourished HEENT: Normocephalic, sclerae nonicteric Abdomen: Nontender, nondistended Extremities: No edema Neuro: Alert and oriented Results - Labs Abnormal Lab Results - Last 24 Hours (Table) 09/28/24 Range/Units 12:23 POC Glucose (mg/dL) 113 H (70-110) mg/dL Assessment and Plan (1) Colonic mass Narrative/Plan: Will proceed with colonoscopy at this time Current Visit: Yes Status: Acute Code(s): K63.89 - OTHER SPECIFIED DISEASES OF INTESTINE SNOMED Code(s): 150115405
[2024-09-28 13:49] VITALS: BP 114/52; RESP 16
--- NOTE | 2024-09-28 13:49 | P.PCN ---
Date of Procedure: 09/28/24 Procedure(s) Performed: PREOPERATIVE DIAGNOSIS: Colon mass POSTOPERATIVE DIAGNOSIS: Ascending colon lesion improved, diverticulosis PROCEDURE: Colonoscopy with biopsy ANESTHESIA: MAC SURGEON: Solomon Cramer M.D. SPECIMENS: Colon lesion ENDOSCOPIC PROCEDURE: The patient was placed on the endoscopy table in the left decubitus position. The Olympus colonoscope was inserted into the anus and passed under direct visualization to the base of the cecum. The appendiceal orifice was visualized. From that point the scope was slowly withdrawn inspecting all surfaces carefully. The base of the cecum was normal. In the ascending colon just distal to the ileocecal valve was an area of induration. No sizable ulceration was present. Multiple biopsies were again taken but overall this had an improved appearance to previous colonoscopy 2 months ago. The remainder of the ascending transverse descending sigmoid and rectum was normal. There was mild left-sided diverticulosis. Digital rectal examination was normal. The patient was taken to the recovery room in stable condition per anesthesia guidelines. RECOMMENDATIONS: Await biopsy results. Will contact patient with those findings. Will discuss further with his oncology team.
[2024-09-28 14:04] VITALS: PULSE 65
== END 2024-09-28 14:35 | disposition home or self-care (01) ==
LOC: ORWHC2ENDO 11:43
PROVIDERS: ATTEND Surgery
DX: K63.3 Ulcer of intestine (principal); K57.30 Diverticulosis of large intestine without perforation or abscess without bleeding; I10 Essential (primary) hypertension; I25.10 Atherosclerotic heart disease of native coronary artery without angina pectoris; I25.2 Old myocardial infarction; Z95.1 Presence of aortocoronary bypass graft; E11.9 Type 2 diabetes mellitus without complications; E78.5 Hyperlipidemia, unspecified; E07.9 Disorder of thyroid, unspecified; J44.9 Chronic obstructive pulmonary disease, unspecified; K21.9 Gastro-esophageal reflux disease without esophagitis; H91.90 Unspecified hearing loss, unspecified ear; Z79.890 Hormone replacement therapy; Z79.82 Long term (current) use of aspirin; Z79.84 Long term (current) use of oral hypoglycemic drugs; Z79.899 Other long term (current) drug therapy; Z87.891 Personal history of nicotine dependence; Z85.72 Personal history of non-Hodgkin lymphomas; Z92.21 Personal history of antineoplastic chemotherapy; Z95.0 Presence of cardiac pacemaker; Z88.1 Allergy status to other antibiotic agents; Z88.5 Allergy status to narcotic agent; Z88.2 Allergy status to sulfonamides; Z88.8 Allergy status to other drugs, medicaments and biological substances; Z91.018 Allergy to other foods
CPT/HCPCS: 88305; 45380; J2704